=== PATIENT | male | born 1945 | race Caucasian/White ===

== ENCOUNTER 2020-05-22 10:23 | Outpatient (CLI) | payer OTHER, SELFPAY ==
--- NOTE | ~2020-05-22 | CT_ITS ---
EXAMINATION: CT chest wo con DATE: 05/22/2020 10:54 INDICATION: Pulmonary nodule TECHNIQUE: Computed tomography (CT) of the chest was performed without intravenous contrast. Automate d exposure control and iterative reconstruction technique were employed. Exam dose: 163.10 mGy-cm to james exam DLP. COMPARISON: 06/23/2019 CT chest 03/22/[address] lung cancer screening FINDINGS: There is mild bilateral apical scarring. There are moderate emphysematous changes. Stable focal pleural-based scarring in the posterolateral right upper lobe, not significantly changed in appearance since 03/22/2019. No significant change of previously reported 6 mm nodular density at the right upper lobe series 4 im age 20). No new or enlarging pulmonary mass is detected. Interval minimal discoid atelectasis in the anterolateral left lung base, left lower lobe. There is aortic and great vessel and coronary artery calcification. No thoracic aortic aneurysm. Norm al heart size. No pericardial or pleural effusion. No hilar or mediastinal mass lesion or lymphadenopathy. No pulmonary infiltrate or consolidation. Mild compression fracture deformities of T6 and L1. IMPRESSION: Moderate emphysema and mild atelectasis and/or scarring of the lungs; no significant new or enlarging pulmonary mass lesion is evident Reviewed, dictated and finalized at [facility]. Reviewed, dictated and finalized at location B. SUPERVISOR IMPRESSION: Moderate emphysema and mild atelectasis and/or scarring of the david gs; no significant new or enlarging pulmonary mass lesion is evident
== END 2020-05-22 10:24 | disposition home or self-care (01) ==
PROVIDERS: PCP Internal Medicine; Visit Provider Internal Medicine Critical Care Medicine
DX: R91.1 Solitary pulmonary nodule (principal); J43.9 Emphysema, unspecified
CPT/HCPCS: 71250

== ENCOUNTER 2020-12-09 15:09 | Outpatient (CLI) | payer OTHER, SELFPAY ==
--- NOTE | ~2020-12-09 | US_ITS ---
EXAMINATION: US carotid duplex BI DATE: 12/09/2020 15:44 INDICATION: Carotid atherosclerosis. Atherosclerotic coronary artery disease. TECHNIQUE: Grayscale, color Doppler, and pulsed Doppler images of the cervical carotid arteries were obtained. The degree of vessel stenosis is placed in one of the following categories: normal, <50%, 5 0-69%, >=70% but less than near-occlusion, near-occlusion, or total occlusion. Note that percent sten osis relative to normal distal artery lumen diameter is indirectly measured from velocity measurement s as described by Jay, et al. Radiology 2003; [id number]:[id number]. COMPARISON: None. FINDINGS: RIGHT: The right common carotid artery (CCA) peak systolic velocity (PSV) is 69 cm/s. The right internal car otid artery (ICA) PSV is 8 cm/s. The right ICA end-diastolic velocity (EDV) is 21 cm/s. The right ICA /CCA PSV ratio is .0. Grayscale and color Doppler images yield an estimate of <50% diameter reduction from plaque in the ICA. The external carotid artery (ECA) PSV is 77 cm/s. There is antegrade flow in the right vertebral artery. Incidentally noted is a 1.4 x 0.9 x 1.3 cm hypoechoic level 2 right cerv ical lymph node which is at the upper limits of normal in size and more round than typical. LEFT: The left CCA PSV is 77 cm/s. The left ICA PSV is 53 cm/s. The left ICA EDV is 15 cm/s. The left ICA/C CA PSV ratio is 0.7. Grayscale and color Doppler images yield an estimate of <50% diameter reduction from plaque in the ICA. The ECA PSV is 73 cm/s. There is antegrade flow in the left vertebral artery. IMPRESSION: 1. <50% stenosis in the right internal carotid artery. 2. <50% stenosis in the left internal carotid artery. 3. Indeterminate prominent right level 2 cervical lymph node which is at the upper limits of normal i n size and more round than typical. This could be either reactive or metastatic. Depending on clinica l history could consider either conservative clinical and/or ultrasound follow-up versus ultrasound-g uided biopsy. Reviewed, dictated and finalized at location A. IMPRESSION: 1. <50% stenosis in the right internal carotid artery. 2. <50% stenosis in the left internal carotid artery. 3. Indeterminate prominent right level 2 cervical lymph node which is at the up per limits of normal in size and more round than typical. This could be either reactive or metastatic. Depending on clinical history could consider either con servative clinical and/or ultrasound follow-up versus ultrasound-guided biopsy.
== END 2020-12-09 15:10 | disposition home or self-care (01) ==
LOC: ANHIMG 15:12
PROVIDERS: PCP Internal Medicine; Visit Provider Internal Medicine
DX: I25.10 Atherosclerotic heart disease of native coronary artery without angina pectoris (principal); I65.23 Occlusion and stenosis of bilateral carotid arteries
CPT/HCPCS: 93880

== ENCOUNTER 2021-01-16 16:04 | Outpatient (CLI) | payer OTHER, SELFPAY ==
--- NOTE | ~2021-01-16 | US_ITS ---
EXAMINATION: US soft tissue head and neck DATE: 01/16/2021 16:33 INDICATION: Enlarged right cervical lymph node TECHNIQUE: Multiple grayscale and Doppler ultrasound images of the abdomen were obtained. COMPARISON: Ultrasound dated 12/09/2020 FINDINGS: Minimal decrease in size of a previously 1.4 x 0.9 x 1.3 cm, now 1.2 x 0.8 x 1.2 cm hypoechoic right jugular chain lymph node near the level of the carotid bulb. No other enlarged jugular chain lymph no geoffrey on either the left or right. There is minimal atherosclerotic plaque at the bilateral carotid bul bs. IMPRESSION: 1. Slight decrease in size of a now 1.2 x 0.8 x 1.2 cm right jugular chain lymph node which is relati vely reassuring although follow-up interval is relatively short and the differences in measurement ar e relatively small and within range of error. Patient states that he will be having a PET CT within t he next week. Would recommend decision on need for further follow-up imaging or biopsy to be based up on findings on the subsequent PET/CT. Reviewed, dictated and finalized at location A. IMPRESSION: 1. Slight decrease in size of a now 1.2 x 0.8 x 1.2 cm right jugular chain lymp h node which is relatively reassuring although follow-up interval is relatively short and the differences in measurement are relatively small and within range of error. Patient states that he will be having a PET CT within the next week. Would recommend decision on need for further follow-up imaging or biopsy to be based upon findings on the subsequent PET/CT.
== END 2021-01-16 16:05 | disposition home or self-care (01) ==
LOC: ANHIMG 16:08
PROVIDERS: PCP Internal Medicine; Visit Provider Internal Medicine
DX: R59.1 Generalized enlarged lymph nodes (principal)
CPT/HCPCS: 76536

== ENCOUNTER 2021-01-22 11:56 | Outpatient (CLI) | payer OTHER, SELFPAY ==
--- NOTE | ~2021-01-22 | PE_ITS ---
EXAMINATION: PET skull to mid thigh DATE: 01/22/2021 14:09 INDICATION: Other nonspecific abnormal finding of the lung field TECHNIQUE: Blood glucose level was 89 mg/dL. 10.886 mCi of 18-fluorodeoxyglucose (18-FDG) was adminis tered i.v. Low dose computed tomography (CT) images were acquired from the base of the brain to the p roximal thighs for attenuation correction and anatomic localization. Positron emission tomography (PE T) images were acquired in the same distribution beginning 49 minutes after injection. The dose-lengt h product (DLP) was 721.58 mGy-cm. COMPARISON: Outside hospital CT dated 01/12/2021 FINDINGS: Head/neck: No abnormal FDG uptake is identified. FDG uptake in the oropharynx and vocal cords without suspicious CT correlate is likely physiologic. Chest: There is a 2.1 x 1.6 cm spiculated nodule of the right upper lobe which demonstrates abnormal FDG uptake with an SUV max of 4.1. There is a 2.0 x 1.8 cm right axillary lymph node with FDG uptake and an SUV max of 6.5. There is moderate emphysema. No pleural effusion or pneumothorax is identified . There are changes of coronary artery bypass grafting. There is scarring in the right lung apex. Abdomen/pelvis/proximal thighs: Physiologic FDG activity is present in the bowel and urinary tract. N o abnormal FDG uptake is identified. The liver, spleen, pancreas, gallbladder, and right adrenal glan d are normal. There is a 1.5 cm mass of the left adrenal gland without FDG uptake, likely an adenoma. There are pathologically enlarged retroperitoneal lymph nodes with abnormal FDG uptake which measure up to 3.3 x 1.7 cm with an SUV max of 8.1. There are pathologically enlarged bilateral external kelly c chain lymph nodes with abnormal FDG uptake. A normal-sized left internal iliac chain lymph node dem onstrates abnormal FDG uptake. There is no free intraperitoneal gas or evidence of bowel obstruction. There are surgical changes of the aorta. Musculoskeletal: There are changes of median sternotomy with FDG uptake at the sternotomy site. No ab normal FDG uptake is identified. IMPRESSION: 1. Spiculated right upper lobe mass concerning for primary bronchogenic carcinoma. 2. Abdominal and pelvic lymphadenopathy which could reflect metastatic disease or lymphoma. 3. Right axillary lymph node which could also reflect metastatic disease or lymphoma. Reviewed, dictated and finalized at location B. IMPRESSION: 1. Spiculated right upper lobe mass concerning for primary bronchogenic carcino ma. 2. Abdominal and pelvic lymphadenopathy which could reflect metastatic disease or lymphoma. 3. Right axillary lymph node which could also reflect metastatic disease or lym phoma.
[2021-01-22 12:20] LABS: Glucose Point of Care 89 mg/dl (65-105)
== END 2021-01-22 11:57 | disposition home or self-care (01) ==
LOC: ANHIMG 11:58
PROVIDERS: PCP Internal Medicine; Visit Provider Nurse Practitioner Family
DX: R91.8 Other nonspecific abnormal finding of lung field (principal)
CPT/HCPCS: 78815; A9552

== ENCOUNTER 2021-02-12 12:40 | Outpatient (CLI) | payer OTHER, SELFPAY ==
[2021-02-06 10:36] VITALS: BMI 27.8
--- NOTE | ~2021-02-12 | US_ITS ---
EXAMINATION: US biopsy lymph node DATE: 02/12/2021 14:17 INDICATION: Right axillary lymphadenopathy. TECHNIQUE: The procedure including the risks, benefits, and alternatives was discussed with the patie nt. Risks discussed included bleeding and infection. The patient understood the risks and agreed to p roceed. The skin overlying the right axilla was prepped and draped in usual sterile fashion. Anesthe tic was administered with 1% lidocaine subcutaneously. An 18 gauge core biopsy needle was then used to obtain 6 core biopsy specimens under continuous sonographic guidance. The entry site was cleaned a nd dressed. There were no immediate complications. FINDINGS: Ultrasound images demonstrate the needle in a 2.7 x 2.2 x 1.6 cm right axillary lymph node. IMPRESSION: 1. Ultrasound-guided core needle biopsy of a mildly enlarged right axillary lymph node. Reviewed, dictated and finalized at location A. IMPRESSION: 1. Ultrasound-guided core needle biopsy of a mildly enlarged right axillary lym ph node.
== END 2021-02-12 12:41 | disposition home or self-care (01) ==
LOC: ANHSURGERY 12:40
PROVIDERS: PCP Internal Medicine; Visit Provider Nurse Practitioner Family
DX: R59.0 Localized enlarged lymph nodes (principal)
CPT/HCPCS: 38505; 76942; 88305; 88341; 88342

== ENCOUNTER 2021-03-11 14:51 | Outpatient (CLI) | payer OTHER, SELFPAY ==
--- NOTE | ~2021-03-11 | US_ITS ---
US soft tissue chest 03/11/2021 15:09 Indication: Left chest swelling since recent open heart surgery Procedure: High-resolution ultrasound of the left chest Comparison: No prior studies for comparison. Findings: Normal heterogeneous echotexture in the left chest. Images of the right chest perform for c omparison without abnormality. Impression: 1: Normal soft tissue ultrasound of the left chest without discrete mass or fluid collection. Reviewed, dictated and finalized at location A. Impression: 1: Normal soft tissue ultrasound of the left chest without discrete mass or flu id collection.
== END 2021-03-11 14:52 | disposition home or self-care (01) ==
PROVIDERS: PCP Internal Medicine; Visit Provider Internal Medicine
DX: R22.2 Localized swelling, mass and lump, trunk (principal)
CPT/HCPCS: 76604

== ENCOUNTER 2021-04-15 00:42 | Day surgery (SDC) | payer OTHER, SELFPAY ==
[2021-04-14 08:30] VITALS: BMI 28.1
--- NOTE | ~2021-04-15 | XR_ITS ---
EXAMINATION: XR chest port-a-cath/central EXAM DATE: 04/15/2021 13:57 INDICATION: Gabby catheter insertion. TECHNIQUE: Portable AP frontal chest x-ray was obtained. There is no prior study for comparison. FINDINGS: There is a right-sided portacatheter, tip projecting over the inferior aspect of the SVC. M ild tortuosity of the catheter at the 1st rib clavicular junction without narrowing or kinking. Some hyperinflation. No postprocedure pneumothorax. Sternotomy wires are present without findings to sug gest sternal dehiscence. No focal airspace disease or pneumothorax. IMPRESSION: 1. No evidence postprocedure pneumothorax. Reviewed, dictated and finalized at location A.
--- NOTE | ~2021-04-15 | XR_ITS ---
EXAMINATION: XR fl guide central line place DATE: 04/15/2021 13:48 INDICATION: Port catheter insertion TECHNIQUE: 3 fluoroscopic images of the central chest in the single portable AP upright radiograph we re obtained during right subclavian central venous port catheter placement performed by Dr. Najera. Ra diologist was not present for the imaging or procedure. The amount of fluoroscopy time used during th is procedure was 0.2 minutes. COMPARISON: None. FINDINGS: Right subclavian central venous port catheter with distal tip at the caudal superior vena cava. Chron ic linear atelectasis/scarring at the anterior right middle lobe along side a small pericardial fat p ad. No new airspace opacities, pulmonary edema, pleural effusion or pneumothorax. The cardiomediastin al silhouette is normal. Median sternotomy wires and mediastinal surgical clips are seen, likely from prior coronary artery bypass grafting. IMPRESSION: 1. Right subclavian central venous port catheter tip in the caudal superior vena cava. No acute cardi opulmonary disease. Reviewed, dictated and finalized at location A. IMPRESSION: 1. Right subclavian central venous port catheter tip in the caudal superior sukhwinder a cava. No acute cardiopulmonary disease.
--- NOTE | 2021-04-15 10:20 | PM.IMHP ---
H&P: HPI History of Present Illness Date/Time: 04/15/21 10:20 Pt is a 75 y/o M presenting for VAD placement. Pt recently dx'd c lymphoma and needs VAD for chemo access. Pt reports he is to start pt IGLESIA. Chief Complaint: lymphoma Review of Systems Review of Systems: All systems reviewed & are unremarkable except as noted in HPI and below PMFSH Past Medical History Medical History Arthritis Bronchitis Hernia Hypertension Lung nodule Midline low back pain without sciatica Muscle rupture NSTEMI (non-ST elevated myocardial infarction) Surgical History Surgical History H/O flhao-lkxif-fpzmewg bypass Double H/O bilateral cataract extraction H/O inguinal hernia repair History of right inguinal hernia repair Hx of tonsillectomy Family History Family History Father Family history of heart disease in male family member before age 55 Hypertension Mother Family history of heart disease in male family member before age 55 Hypertension Cerebrovascular accident Sibling COPD (chronic obstructive pulmonary disease) Other Family history of cardiovascular disease Social History Social History Social History: The patient lives home alone. His sister is a durable power civil attorney for healthcare. His children do live elsewhere. 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 Pt stated stop smoking 06/22/2019. Smoking packs per day: 1 Smoking cigarettes per day: 20.0 Years smoked: 50 Smoking pack-years: 50.00 Smoking status: Current every day smoker Tobacco type: cigarettes Second hand tobacco smoke exposure: Yes Smoking end date: 06/21/19 Additional smoking assessment comments: He stated that he quit smoking yesterday and he has tried Wellbutrin in the Alcohol intake: former Drinks per week: 15 Substance use: never Substance use type: does not use Living arrangements: alone Gender identity (if verbalized by the patient): Male Spiritual care concerns: No Agree to blood products: Yes Meds Home Medications and Allergies Home Medications Medication Instructions Recorded Confirmed Type metoprolol tartrate 50 mg tablet 50 mg PO Q12H 05/18/19 04/14/21 History alprazolam 0.5 mg tablet 0.5 mg PO TID PRN #90 tablet 12/02/20 04/14/21 Rx aspirin 81 mg tablet,delayed 81 mg PO DAILY 12/02/20 04/14/21 History release albuterol sulfate 2 puff INHALATION QID PRN 02/06/21 04/14/21 History atorvastatin 40 mg PO HS 02/06/21 04/14/21 History budesonide-formoterol [Symbicort] 2 puff INHALATION DAILY 02/06/21 04/14/21 History fluticasone propionate [Flonase] 2 spray INTRANASAL BID 02/06/21 04/14/21 History ipratropium-albuterol 3 ml INHALATION TID 02/06/21 04/14/21 History nifedipine 30 mg PO QAM 02/06/21 04/14/21 History nystatin 100,000 unit/mL oral See Rx Instructions .ROUTE 03/23/21 04/14/21 Rx suspension .COMPLEX #224 ml arginine oxoglurate 500 mg PO DAILY 04/08/21 04/14/21 History [L-Arginine(alpha-ketoglutarat)] guaifenesin [Mucinex] 600 mg PO Q12H PRN 04/08/21 04/14/21 History pyridoxine (vitamin B6) 100 mg PO DAILY 04/08/21 04/14/21 History tramadol 50 mg PO PRN PRN 04/08/21 04/14/21 History vitamin B complex [B Complex] 1 cap PO DAILY 04/08/21 04/14/21 History vitamin E 100 unit PO DAILY 04/08/21 04/14/21 History Allergies Allergy/AdvReac Type Severity Reaction Status Date / Time potassium iodide Allergy Unknown THROAT Verified 04/14/21 10:28 SWELLS Exam Const: General: comfortable, no acute distress and ill appearing Nutritional Appearance: average body habitus Orientation/consciousness: patient oriented x3 Limitations: no limitations HENMT: Head: normal to inspection, normocephalic an
--- NOTE | 2021-04-15 10:23 | WPDHPUPDATE1 ---
History and Physical Update Update Date/Time: 04/15/21 10:23 History and Physical has been reviewed, including an updated exam of the patient. There are NO changes in the patient's condition. Risks, benefits, and alternatives have been discussed and questions answered. Patient agrees to proceed with procedure.
[2021-04-15] MEDS: LACTATED RINGERS 1,000 ML 30 ML IV CONT (11:15)
[2021-04-15] MEDS: KETOROLAC 15 MG/ML VIAL (*BKC) IV PUSH (11:20)
[2021-04-15 11:24] VITALS: BP 129/71; PULSE 67; TEMP 36.4; O2SAT 100
--- NOTE | 2021-04-15 11:25 | WPDANESEPPF ---
Anes - Initial Pre Proc Eval Procedure: Operation Date: 04/15/21 12:00 Proposed Procedures p [id number] Insertion - Sania Najera MD Date/Time: 04/15/21 11:25 Surgeon: Sania Najera MD Pre Op Diagnosis: lymphoma Patient Data Age: 75 Gender: M Height: 1.73 m Weight: 83.95 kg Allergies Allergy/AdvReac Type Severity Reaction Status Date / Time potassium iodide Allergy Unknown THROAT Verified 04/15/21 10:46 SWELLS Home Medications Medication Instructions Recorded Confirmed Type metoprolol tartrate 50 mg tablet 50 mg PO Q12H 05/18/19 04/15/21 History alprazolam 0.5 mg tablet 0.5 mg PO TID PRN #90 tablet 12/02/20 04/15/21 Rx aspirin 81 mg tablet,delayed 81 mg PO DAILY 12/02/20 04/15/21 History release albuterol sulfate 2 puff INHALATION QID PRN 02/06/21 04/15/21 History atorvastatin 40 mg PO HS 02/06/21 04/15/21 History budesonide-formoterol [Symbicort] 2 puff INHALATION DAILY 02/06/21 04/15/21 History fluticasone propionate [Flonase] 2 spray INTRANASAL BID 02/06/21 04/15/21 History ipratropium-albuterol 3 ml INHALATION TID 02/06/21 04/15/21 History nifedipine 30 mg PO QAM 02/06/21 04/15/21 History nystatin 100,000 unit/mL oral See Rx Instructions .ROUTE 03/23/21 04/15/21 Rx suspension .COMPLEX #224 ml arginine oxoglurate 500 mg PO DAILY 04/08/21 04/15/21 History [L-Arginine(alpha-ketoglutarat)] guaifenesin [Mucinex] 600 mg PO Q12H PRN 04/08/21 04/15/21 History pyridoxine (vitamin B6) 100 mg PO DAILY 04/08/21 04/15/21 History tramadol 50 mg PO PRN PRN 04/08/21 04/15/21 History vitamin B complex [B Complex] 1 cap PO DAILY 04/08/21 04/15/21 History vitamin E 100 unit PO DAILY 04/08/21 04/15/21 History Laboratory Tests 04/15/21 10:29 PT Pending INR Pending APTT Pending Patient hx anesthesia problems: post op nausea/vomiting Family hx anesthesia problems: none Results Review: All pre-operative results and documents have been reviewed as part of the pre-operative evaluation. [facility] Past Medical History Medical History Arthritis Bronchitis Hernia Hypertension Lung nodule Midline low back pain without sciatica Muscle rupture NSTEMI (non-ST elevated myocardial infarction) Surgical History Surgical History H/O fqojf-qjnva-ftkeisw bypass Double H/O bilateral cataract extraction H/O inguinal hernia repair History of right inguinal hernia repair Hx of tonsillectomy Family History Family History Father Family history of heart disease in male family member before age 55 Hypertension Mother Family history of heart disease in male family member before age 55 Hypertension Cerebrovascular accident Sibling COPD (chronic obstructive pulmonary disease) Other Family history of cardiovascular disease Social History Social History Social History: The patient lives home alone. His sister is a durable power attorney law clerk for healthcare. His children do live elsewhere. 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 Pt stated stop smoking 06/22/2019. Smoking packs per day: 1 Smoking cigarettes per day: 20.0 Years smoked: 50 Smoking pack-years: 50.00 Smoking status: Current every day smoker Tobacco type: cigarettes Second hand tobacco smoke exposure: Yes Smoking end date: 06/21/19 Additional smoking assessment comments: He stated that he quit smoking yesterday and he has tried Wellbutrin in the Alcohol intake: former Drinks per week: 15 Substance use: never Substance use type: does not use Living arrangements: alone Gender identity (if verbalized by the patient): Male Spiritual care concerns: No Agree to blood products: Yes Anes - Eval Final
[2021-04-15 11:33] LABS: Prothrombin Time 13.2 Seconds (11.1-14.7)
[2021-04-15 11:34] LABS: Partial Thromboplastin Time 36.3 SECONDS (22.3-36.8)
[2021-04-15] MEDS: ceFAZolin 2 GM/D5W 50 ML 2 GM/50 ML BAG IVPB (12:51)
[2021-04-15] MEDS: LIDO 1%/EPINEPHRINE 1:100,000 50 ML VIAL INFILTRATE (13:17)
[2021-04-15] MEDS: HEPARIN SODIUM 5,000 UNITS/ML VIAL 5000 UNITS IRRIGATION (13:19)
[2021-04-15] MEDS: HEPARIN SODIUM, PORCINE 10,000 UNITS/10 ML VIAL 10000 UNITS IV PUSH (13:21)
--- NOTE | 2021-04-15 13:27 | W.PM.PROC2 ---
Procedure Note - Detailed Date of Procedure 04/15/21 Pre-op Diagnosis lymphoma Post-op Diagnosis same Procedure Performed placement of left subclavian venous access device with fluroscopic guidance Surgeon Sania Najera MD Anesthesia MAC and local Indications 75 y/o M c lymphoma necessitating venous access device for chemo access Findings 1st stick L SCV Description of Procedure Patient was brought into the operating room and placed in the supine position. After adequate induction of mac anesthesia, the patient was prepped and draped in normal sterile fashion. Time-out was then done to verify the patient's identity, as well as the procedure being performed. I began by making a small incision in the left chest, I then gained access into the left subclavian vein with an 18 gauge needle. I then placed the guidewire into the vein and confirmed placement via fluoroscopic guidance. I then locally anesthetized the area in the left chest. I then enlarged the incision around the guidewire including making a subcutaneous pocket inferiorly to allow placement of the port itself. I then placed a dilating sheath over the guidewire into the left subclavian vein via sterile Seldinger technique. This was once again done and confirmed via fluoroscopic guidance. I then removed the dilator and the guidewire, now just leaving the sheath in the vein. I then fed the previously flushed catheter into the left subclavian vein under fluoroscopic guidance. At approximately 19 cm, the catheter was noted to be near the atrial caval junction. I then peeled away the sheath, now just leaving the catheter in the vein. I then was able to easily draw and flush from the catheter. The catheter was cut to fit and attached to the port itself. The port was placed into the previously made subcutaneous pocket and sutured in with 0 Ethibond suture. Final fluoroscopic view showed the termination of the catheter at the atrial caval junction with a nice smooth curvature back to the port itself. I was able to gain access to the port with a Hoffman needle and was able to easily draw and flush from the port. I then flushed 4 cc of a final heparin flush into the port. The incision was closed with 3 0 Vicryl suture in the subcutaneous tissue and the skin was closed with 4 O Monocryl subcuticular suture. Dermabond was then placed on wound. The patient tolerated the procedure well and will be sent to the recovery room in stable condition. Implants L SCV VAD Estimated Blood Loss 10 Drains No Packing No Pathology none sent Complications No immediate complications Condition stable Disposition PACU
[2021-04-15 13:33] VITALS: BP 112/63; PULSE 88; RESP 16; O2SAT 96
[2021-04-15 14:00] VITALS: BP 107/78; PULSE 83; RESP 20
[2021-04-15 14:25] VITALS: BP 107/78; PULSE 83; RESP 20
--- NOTE | 2021-04-15 14:32 | SUR.PHASEII ---
1400 - xray results noted.
== END 2021-04-15 14:32 | disposition home or self-care (01) ==
PROVIDERS: PCP Internal Medicine; Visit Provider Surgery
PROC: (CPT 36561; principal; 2021-04-15 12:00)
DX: C82.90 Follicular lymphoma, unspecified, unspecified site (principal); I10 Essential (primary) hypertension; I25.2 Old myocardial infarction; Z79.82 Long term (current) use of aspirin; Z79.51 Long term (current) use of inhaled steroids; Z87.891 Personal history of nicotine dependence; Z79.899 Other long term (current) drug therapy
CPT/HCPCS: 36561; 36415; 77001; 85610; 85730; C1788; J0690; J1644; J1885; J3010; J7030; J7120

== ENCOUNTER 2021-04-19 10:36 | Emergency (ER) | payer OTHER, SELFPAY ==
[2021-04-19] VITALS (8 sets, daily range): BP systolic 92–148; BP diastolic 68–80; PULSE 85–101; RESP 15–30; TEMP 37.6; O2SAT 92–99
--- NOTE | ~2021-04-19 | XR_ITS ---
XR chest 2V 04/19/2021 12:57 Indication: Fevers, chills. Lung cancer. Procedure: AP and lateral chest Comparison: Comparison to multiple prior studies sequentially, with oldest reviewed study dated 09/25. Findings: Status post median sternotomy for CABG. Portacatheter tip mass CC. Heart size normal. No fo shravan air space disease, pulmonary edema, pleural effusion or suspected pneumothorax. The lungs are hyp erinflated which is consistent with, but not diagnostic of chronic obstructive pulmonary disease. Impression: 1: No acute cardiopulmonary disease. Reviewed, dictated and finalized at location A. Impression: 1: No acute cardiopulmonary disease.
[2021-04-19] MEDS: SODIUM CHLORIDE 0.9% IV 1,000 ML 999 ML IV CONT ×2 (13:00→16:24)
[2021-04-19 13:05] LABS: Basophils Absolute Auto 0.1 K/mm3 (0.0-0.1); Basophils Percent Auto 0.4 % (0.2-1.2); Eosinophils Absolute Auto 0.1 K/mm3 (0-0.3); Eosinophils Percent Auto 0.7 % (0-4.4); Hematocrit 42.4 % (42.0-52.0); Hemoglobin 15.2 g/dL (14.0-18.0); Immature Granulocyte Absolute 0.11 K/mm3 (0.00-0.031); Immature Platelet Fraction Pct 4.9 % (0.9-11.2); Lymphocytes Absolute Auto 0.45 K/mm3 (0.9-3.2); Mean Corpuscular HGB Conc 35.8 g/dl (32-36); Mean Corpuscular Hemoglobin 33.6 pg (26-34); Mean Corpuscular Volume 93.6 fl (80-100); Mean Platelet Volume 10.2 fl (7.4-10.4); Monocytes Absolute Auto 2.5 K/mm3 (0.1-0.6); Monocytes Percent Auto 22.4 % (2.6-8.5); Neutrophils Percent Auto 71.5 % (45.5-73.1); Platelet Count Result 150 k/mm3 (150-375); Red Blood Count 4.53 M/mm3 (4.6-6.20); Red Cell Distribution Width 13.2 % (11.5-14.5); White Blood Count 11.2 K/mm3 (4.5-10.0)
[2021-04-19 13:13] LABS: INR 1.1; Prothrombin Time 14.3 Seconds (11.1-14.7)
[2021-04-19 13:14] LABS: Partial Thromboplastin Time 39.6 SECONDS (22.3-36.8)
[2021-04-19 13:19] LABS: Lactic Acid Reflex 1.1 mmol/L (0.7-2.1)
[2021-04-19 13:32] LABS: Alanine Aminotransferase 21 U/L (4-50); Albumin Level 4.5 g/dL (3.5-5.1); Alkaline Phosphatase 109 U/L (38-126); Anion Gap 9 mmol/L (8-16); Aspartate Amino Transferase 27 U/L (17-59); Bilirubin,Total 1.3 mg/dL (0.2-1.3); Blood Urea Nitrogen 10 mg/dL (9-20); CRP 15.8 mg/dL (<1.0); Calcium 9.2 mg/dL (8.4-10.2); Carbon Dioxide 21 mmol/L (22-30); Chloride 97 mmol/L (98-107); Estimated CRCL calculation 75 ml/min; Estimated Glomerular Filt Rate > 60; Glucose 108 mg/dL (65-110); Potassium 4.1 mmol/L (3.4-5.0); Sodium 127 mmol/L (137-145)
--- NOTE | 2021-04-19 13:50 | ED.FEVER ---
HPI - Fever General Chief Complaint: Fever Stated Complaint: fever/chills post op Time Seen by Provider: 04/19/21 12:35 Source: patient History of Present Illness HPI Narrative: Patient presents with concern for infection. Patient already had a port placed couple days ago by Dr. Broussard to doing well however has had increasing pain to his port sites and reports fevers of 102 at home. His current there is an infection around his sites he came to the ER for evaluation. Reports he feels weak and fatigued reports pains around his port site. Pain is constant, achy, worse with palpation of the area no radiation. Denies nausea vomiting or diarrhea denies abdominal pain denies cough or congestion denies urinary symptoms Related Data Home Medications Medication Instructions Recorded Confirmed metoprolol tartrate 50 mg tablet 50 mg PO Q12H 05/18/19 04/15/21 aspirin 81 mg tablet,delayed 81 mg PO DAILY 12/02/20 04/15/21 release albuterol sulfate 2 puff INHALATION QID PRN 02/06/21 04/15/21 atorvastatin 40 mg PO HS 02/06/21 04/15/21 budesonide-formoterol [Symbicort] 2 puff INHALATION DAILY 02/06/21 04/15/21 fluticasone propionate 2 spray INTRANASAL BID 02/06/21 04/15/21 ipratropium-albuterol 3 ml INHALATION TID 02/06/21 04/15/21 nifedipine 30 mg PO QAM 02/06/21 04/15/21 L-Arginine(alpha-ketoglutarat) 500 mg PO DAILY 04/08/21 04/15/21 guaifenesin [Mucinex] 600 mg PO Q12H PRN 04/08/21 04/15/21 pyridoxine (vitamin B6) 100 mg PO DAILY 04/08/21 04/15/21 tramadol 50 mg PO PRN PRN 04/08/21 04/15/21 vitamin B complex 1 cap PO DAILY 04/08/21 04/15/21 vitamin E 100 unit PO DAILY 04/08/21 04/15/21 Allergies Allergy/AdvReac Type Severity Reaction Status Date / Time potassium iodide Allergy Unknown THROAT Verified 04/15/21 10:46 DENIZ Review of Systems Review of Systems: CONSTITUTIONAL: Reports fevers EYES: Denies visual changes, redness, or discharge. ENT: Denies rhinorrhea, congestion, sore throat, or otalgia. CARDIOVASCULAR: Denies palpitations, or edema. RESPIRATORY: Denies cough or dyspnea. GASTROINTESTINAL: Denies abdominal pain, nausea, vomiting, or diarrhea. GENITOURINARY: Denies dysuria or hematuria. SKIN: Denies rash or itching. MUSCULOSKELETAL: Denies back pain, joint pain, or myalgia. NEUROLOGIC: Denies headache, numbness, dizziness, or weakness. PSYCHIATRIC: Denies anxiety or depression. All systems reviewed & are unremarkable except as noted in HPI and below PMFSH Past Medical History Medical History Arthritis Bronchitis Hernia Hypertension Lung nodule Midline low back pain without sciatica Muscle rupture NSTEMI (non-ST elevated myocardial infarction) Surgical History Surgical History H/O niwdd-skuan-beqygrd bypass Double H/O bilateral cataract extraction H/O inguinal hernia repair History of right inguinal hernia repair Hx of tonsillectomy Family History Family History Father Family history of heart disease in male family member before age 55 Hypertension Mother Family history of heart disease in male family member before age 55 Hypertension Cerebrovascular accident Sibling COPD (chronic obstructive pulmonary disease) Other Family history of cardiovascular disease Social History Social History Social History: The patient lives home alone. His sister is a durable power commercial attorney for healthcare. His children do live elsewhere. 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 Pt stated stop smoking 06/22/2019. Smoking packs per day: 1 Smoking cigarettes per day: 20.0 Years smoked: 50 Smoking pack-years: 50.00 Smoking status: Current every day smoker Tobacco type: cigarettes Second hand tobacco smoke exposure
[2021-04-19 15:11] LABS: Add Urine Microscopic? YES; Appearance Urine Clear (Clear); Bilirubin Urine Negative (Negative); Blood Urine 1+ (Negative); Color Urine Yellow (Yellow); Glucose Urine UA Negative (Negative); Ketones Urine Trace mg/dL (Negative); Leukocyte Esterase Ur Negative LEU/UL (Negative); Nitrate Urine Negative (Negative); Protein Urine Negative (Negative); Specific Grav Ur 1.008 (1.001-1.035); WBC Urine 0-3 /hpf
== END 2021-04-19 17:00 | disposition home or self-care (01) ==
PROVIDERS: Emergency Provider Emergency Medicine; PCP Internal Medicine
DX: R07.9 Chest pain, unspecified (principal); R50.9 Fever, unspecified; I10 Essential (primary) hypertension; I25.2 Old myocardial infarction; F17.210 Nicotine dependence, cigarettes, uncomplicated; Z79.82 Long term (current) use of aspirin
CPT/HCPCS: 36415; 71046; 80053; 81001; 83605; 85025; 85055; 85610; 85730; 86140; 87040; 87077; 87186; 96361; 96365; 96366; 96375; 99284; J0131; J3370; J7030

== ENCOUNTER 2021-06-11 10:26 | Emergency (ER) | payer OTHER, SELFPAY ==
--- NOTE | ~2021-06-11 | CT_ITS ---
EXAMINATION: CTA chest PE protocol DATE: 06/11/2021 12:31 INDICATION: Palpitations. Right lung upper lobe cancer receiving radiation therapy. Not proven by bio psy. TECHNIQUE: Computed tomography angiography (CTA) of the chest was performed with 100 mL Omnipaque-350 intravenous contrast timed to evaluate the pulmonary arteries. Coronal maximum intensity projection 3D-reconstructions were created by the technologist. Automated exposure control and iterative reconst ruction technique were employed. The dose-length product was 409.91 mGy-cm. COMPARISON: Chest CT 05/22/2020, 01/12/2021 FINDINGS: There is mild scarring at the lung apices. There is moderate emphysema. In the right upper lobe, there is a 1.3 cm nodule with bandlike morphology, decreased from 2.2 cm on 01/12/2021. The irre gular morphology of the nodule may cause variability in measurement. There is mild atelectasis bilate rally. There is a new 5 mm nodule in right lower lobe. There is a worsened 11 mm nodule in left lower lobe in the costophrenic angle. No pleural effusion. There is a right subclavian port with tip at martinez perior cavoatrial junction. The heart size is normal. There are coronary artery calcifications. There are changes of coronary bypass grafting. There is no pulmonary embolus. There is mild thoracic spond ylosis. There is mild chronic anterior wedging and loss of T3, T6, and L1 vertebral bodies. IMPRESSION: 1. No pulmonary embolus. Sensitivity is mildly decreased attenuation artifact. 2. Right upper lobe nodule with interval improvement status post radiation therapy. This finding may be primary bronchogenic carcinoma, but is not biopsy-proven. 3. Worsened pulmonary nodules, which may be infection or malignancy. Consider noncontrast low-dose est CT in 3 months. 4. Moderate emphysema. Reviewed, dictated and finalized at location A. US SECURITY DIRECTOR IMPRESSION: 1. No pulmonary embolus. Sensitivity is mildly decreased attenuation artifact. 2. Right upper lobe nodule with interval improvement status post radiation ther apy. This finding may be primary bronchogenic carcinoma, but is not biopsy-prov en. 3. Worsened pulmonary nodules, which may be infection or malignancy. Consider n oncontrast low-dose chest CT in 3 months. 4. Moderate emphysema.
--- NOTE | ~2021-06-11 | XR_ITS ---
EXAMINATION: XR chest 2V DATE: 06/11/2021 11:55 INDICATION: Non-Hodgkin's lymphoma and right lung cancer presenting with palpitations. TECHNIQUE: PA and lateral views of the chest were obtained. COMPARISON: Chest radiograph dated 04/19/[address] dated 05/22/2020 FINDINGS: Right subclavian central venous port catheter with distal tip in the midsuperior vena cava. Mild hype rexpansion lungs. No focal airspace opacities, pulmonary edema, pleural effusion or pneumothorax. The cardiomediastinal silhouette is normal. Median sternotomy wires and mediastinal surgical clips are s een, likely from prior coronary artery bypass grafting. IMPRESSION: 1. Hyperexpansion of lungs consistent with CT which is better appreciated on prior CT. No acute cardi opulmonary disease. Reviewed, dictated and finalized at location B. BLOWER IMPRESSION: 1. Hyperexpansion of lungs consistent with CT which is better appreciated on pr ior CT. No acute cardiopulmonary disease.
[2021-06-11 10:29] VITALS: BP 110/69; PULSE 99; RESP 16; TEMP 36.7; O2SAT 100
[2021-06-11 11:36] VITALS: BP 151/82; PULSE 97; PULSE 99; RESP 17; RESP 20; O2SAT 99
--- NOTE | 2021-06-11 11:39 | ECG_ITS ---
Measurements Intervals [place] Rate: 96 P: 64 WI: 163 QRS: 40 QRSD: 67 T: 71 QT: 327 QTc: 415 Interpretive Statements SINUS RHYTHM RSR' IN V1 OR V2, PROBABLY NORMAL VARIANT BASELINE ARTIFACT- II, III, V4-V6 BORDERLINE ECG Electronically Signed On 06-11-2021 16:42:15 METAL LOADER by Tylor Angel D.O.
[2021-06-11 11:57] LABS: Basophils Absolute Auto 0.1 K/mm3 (0.0-0.1); Basophils Percent Auto 0.7 % (0.2-1.2); Eosinophils Absolute Auto 0.5 K/mm3 (0-0.3); Eosinophils Percent Auto 5.1 % (0-4.4); Hematocrit 39.2 % (42.0-52.0); Hemoglobin 13.7 g/dL (14.0-18.0); Immature Granulocyte Absolute 0.09 K/mm3 (0.00-0.031); Immature Granulocyte Percent A 0.9 % (0-0.5); Lymphocytes Absolute Auto 0.58 K/mm3 (0.9-3.2); Lymphocytes Percent Auto 5.9 % (18.3-44.2); Mean Corpuscular HGB Conc 34.9 g/dl (32-36); Mean Corpuscular Hemoglobin 33.3 pg (26-34); Mean Corpuscular Volume 95.4 fl (80-100); Mean Platelet Volume 11.4 fl (7.4-10.4); Monocytes Absolute Auto 2.2 K/mm3 (0.1-0.6); Monocytes Percent Auto 22.8 % (2.6-8.5); Neutrophils Absolute Auto 6.4 K/mm3 (1.3-6.7); Neutrophils Percent Auto 64.6 % (45.5-73.1); Platelet Count Result 143 k/mm3 (150-375); Red Blood Count 4.11 M/mm3 (4.6-6.20); Red Cell Distribution Width 13.9 % (11.5-14.5); White Blood Count 9.8 K/mm3 (4.5-10.0)
[2021-06-11 12:05] LABS: Alanine Aminotransferase 50 U/L (4-50); Albumin Level 3.4 g/dL (3.5-5.1); Alkaline Phosphatase 107 U/L (38-126); Anion Gap 9 mmol/L (8-16); Aspartate Amino Transferase 39 U/L (17-59); Bilirubin,Total 0.6 mg/dL (0.2-1.3); Blood Urea Nitrogen 16 mg/dL (9-20); Calcium 8.5 mg/dL (8.4-10.2); Carbon Dioxide 23 mmol/L (22-30); Chloride 102 mmol/L (98-107); Estimated CRCL calculation 59 ml/min; Estimated Glomerular Filt Rate > 60; Glucose 150 mg/dL (65-110); Lipase 48 U/L (23-300); Potassium 3.9 mmol/L (3.4-5.0); Prothrombin Time 12.9 Seconds (11.1-14.7); Sodium 134 mmol/L (137-145)
[2021-06-11 12:06] LABS: Partial Thromboplastin Time 37.5 SECONDS (22.3-36.8)
--- NOTE | 2021-06-11 12:16 | ED.ARRPALP ---
HPI - Arrhythmia/Palpitations General Chief Complaint: Arrhythmia/Palpitations Stated Complaint: HTN/Palpitations. Time Seen by Provider: 06/11/21 11:40 Source: patient History of Present Illness HPI narrative: Patient presents with palpitations. Reports has had intermittent palpitations for the past 2 weeks without clear etiology. Reports the symptoms happen again last night and his heart rate is in the 120s he was concerned so he came to the ER for evaluation. Reports he was scheduled for a court recording monitor to be placed at [place] with his plastic die maker apprentice however he was scared so he came to the ER instead. On arrival to the ER he reports he feels normal denies any palpitations, chest pain, shortness of breath, lightheadedness. He has been unable to identify any thing clear that triggers these events. Does report a history of malignancy and is on chemo and radiation therapy. Related Data Home Medications Medication Instructions Recorded Confirmed metoprolol tartrate 50 mg tablet 25 mg PO Q12H 05/18/19 05/27/21 albuterol sulfate 2 puff INHALATION QID PRN 02/06/21 05/27/21 atorvastatin 40 mg PO HS 02/06/21 05/27/21 budesonide-formoterol [Symbicort] 2 puff INHALATION DAILY 02/06/21 05/27/21 fluticasone propionate 2 spray INTRANASAL BID 02/06/21 05/27/21 ipratropium-albuterol 3 ml INHALATION TID 02/06/21 05/27/21 L-Arginine(alpha-ketoglutarat) 500 mg PO DAILY 04/08/21 05/27/21 guaifenesin [Mucinex] 600 mg PO Q12H PRN 04/08/21 05/27/21 pyridoxine (vitamin B6) 100 mg PO DAILY 04/08/21 05/27/21 tramadol 50 mg PO PRN PRN 04/08/21 05/27/21 vitamin B complex 1 cap PO DAILY 04/08/21 05/27/21 vitamin E 100 unit PO DAILY 04/08/21 05/27/21 nifedipine 60 mg PO DAILY 05/26/21 05/27/21 Allergies Allergy/AdvReac Type Severity Reaction Status Date / Time potassium iodide Allergy Unknown THROAT Verified 06/11/21 11:40 DENIZ Review of Systems Review of Systems: CONSTITUTIONAL: Denies fever, chills, or sweats. EYES: Denies visual changes, redness, or discharge. ENT: Denies rhinorrhea, congestion, sore throat, or otalgia. CARDIOVASCULAR: Denies chest pain, or edema. RESPIRATORY: Denies cough or dyspnea. GASTROINTESTINAL: Denies abdominal pain, nausea, vomiting, or diarrhea. GENITOURINARY: Denies dysuria or hematuria. SKIN: Denies rash or itching. MUSCULOSKELETAL: Denies back pain, joint pain, or myalgia. NEUROLOGIC: Denies headache, numbness, dizziness, or weakness. PSYCHIATRIC: Denies anxiety or depression. All systems reviewed & are unremarkable except as noted in HPI and below PMFSH Past Medical History Medical History Arthritis Bronchitis Hernia Hypertension Lung nodule Midline low back pain without sciatica Muscle rupture NSTEMI (non-ST elevated myocardial infarction) Surgical History Surgical History H/O ccjoo-jevwc-khsumco bypass Double H/O bilateral cataract extraction H/O inguinal hernia repair History of right inguinal hernia repair Hx of tonsillectomy Family History Family History Father Family history of heart disease in male family member before age 55 Hypertension Mother Family history of heart disease in male family member before age 55 Hypertension Cerebrovascular accident Sibling COPD (chronic obstructive pulmonary disease) Other Family history of cardiovascular disease Social History Social History Social History: The patient lives home alone. His sister is a durable power district attorney for healthcare. His children do live elsewhere. 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 Pt stated stop smoking 06/22/2019. Smoking packs per day: 1 Smoking cigarettes per day: 20.0 Years smoked: 50 Smoking pack-years: 50.
[2021-06-11 12:17] LABS: Troponin I < 0.012 ng/mL (0.000-0.034)
[2021-06-11 13:00] VITALS: BP 120/72; PULSE 87; RESP 16; O2SAT 98
[2021-06-11 14:00] VITALS: BP 124/70; PULSE 90; RESP 16; O2SAT 98
== END 2021-06-11 14:00 | disposition home or self-care (01) ==
PROVIDERS: Emergency Medicine; Emergency Provider Emergency Medicine; PCP Internal Medicine
DX: R00.2 Palpitations (principal); I10 Essential (primary) hypertension; I25.10 Atherosclerotic heart disease of native coronary artery without angina pectoris; E78.2 Mixed hyperlipidemia; I25.2 Old myocardial infarction; F17.210 Nicotine dependence, cigarettes, uncomplicated; Z95.1 Presence of aortocoronary bypass graft
CPT/HCPCS: 36415; 71046; 71275; 80053; 83690; 84484; 85025; 85610; 85730; 93005; 99284; Q9967

== ENCOUNTER 2021-06-24 17:02 | Emergency (ER) | payer OTHER, SELFPAY ==
--- NOTE | 2021-06-24 17:20 | PC.NURSE ---
pt amb to intake , pt states he was sent here by his drRossi to be admitted, and have antibiotics, i have a blood infection , during intake, pt stated his dr called and set things up and he would not have to wait longer than 20min. I asked the nursing maid housekeeper if she was called for a direct admit, she stated no call & not accepting direct admits at this time. spoke with ED charge, pt states the pt did call. pt does have positive blood cult. his md was told by ed md, there would be a wait in the ed & the md was ok with this. explained to this pt, if he was instructed by his md to come in for blood infection , it would be in his best interest to wait to be seen/triaged. pt stated i am leaving, i was supposed to be brought right in, I ll come back in the morning. I told him due to the high acuity and census of the dept, i could not guarantee him a no wait time even in the morning. pt amb out of ed with nl steady gait, no distress noted.
== END 2021-06-25 04:32 | disposition left against medical advice (07) ==
PROVIDERS: PCP Internal Medicine
DX: Z53.21 Procedure and treatment not carried out due to patient leaving prior to being seen by health care provider (principal)
CPT/HCPCS: 99199

== ENCOUNTER 2021-08-03 12:41 | Inpatient (IN) | payer OTHER, MEDICAID, SELFPAY ==
--- NOTE | ~2021-08-03 | XR_ITS ---
EXAMINATION: XR chest 1V portable INDICATION: Port-A-Cath infection, history of hypertension TECHNIQUE: Portable AP chest at 1556 hours COMPARISON: 06/11/2021 FINDINGS: A right subclavian Port-A-Cath ends with its tip in the midsuperior vena cava. There are pa tchy bilateral airspace opacities. No pleural effusion or pneumothorax is identified. Median sternoto my wires are consistent with prior cardiac surgery. IMPRESSION: 1. Patchy bilateral airspace opacities, consistent with atelectasis versus pneumonia. Reviewed, dictated and finalized at location B. ER TRAPPER IMPRESSION: 1. Patchy bilateral airspace opacities, consistent with atelectasis versus pneu monia.
[2021-08-03 13:01] VITALS: BP 145/91; PULSE 116; RESP 16; TEMP 36.8; O2SAT 96
--- NOTE | 2021-08-03 13:34 | ED.RECABL ---
HPI - Recheck/Abnormal Lab/Rx General Chief Complaint: Recheck/Abnormal Lab/Rx Stated Complaint: positive blood cultures Time Seen by Provider: 08/03/21 13:34 Source: patient and EMS Mode of arrival: EMS Limitations: no limitations History of Present Illness HPI narrative: Patient is a 75-year-old male with a history of coronary artery disease, CABG, COPD, paroxysmal SVT, atrial fibrillation, right small cell lung cancer, follicular lymphoma, presenting to the emergency department for evaluation of positive blood cultures. Patient has a history of positive blood cultures in the past with recent hospitalization at [facility]. He has been receiving chemotherapy through a right chest port. Patient reports fever, chills, febrile to 102 Fahrenheit at home. He reports rigors at times. He reports decreased oral intake secondary to generalized malaise. He denies any cough, shortness of breath or chest pain. No rashes. Patient states that he was informed to come here by his checkering machine operator/oncologist. Primary chart review, patient had labs, blood cultures drawn on outpatient hematology/oncology visit. 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 Patient was recently placed on Levaquin by his checkering machine operator and oncologist 3 days ago. He has been compliant with this medication. He denies any dizziness or lightheadedness. He is undergoing chemotherapy. Related Data Home Medications Medication Instructions Recorded Confirmed metoprolol tartrate 50 mg tablet 25 mg PO Q12H 05/18/19 07/23/21 atorvastatin 40 mg PO HS 02/06/21 07/23/21 budesonide-formoterol [Symbicort] 2 puff INHALATION DAILY 02/06/21 07/23/21 ipratropium-albuterol 3 ml INHALATION TID 02/06/21 07/23/21 L-Arginine(alpha-ketoglutarat) 500 mg PO DAILY 04/08/21 07/23/21 guaifenesin [Mucinex] 400 mg PO Q12H PRN 04/08/21 07/23/21 pyridoxine (vitamin B6) 100 mg PO DAILY 04/08/21 07/22/21 tramadol 50 mg PO PRN PRN 04/08/21 07/23/21 vitamin E 100 unit PO DAILY 04/08/21 07/22/21 nifedipine 60 mg PO DAILY 05/26/21 07/22/21 aspirin 81 mg tablet,delayed 81 mg PO DAILY 07/22/21 07/23/21 release minocycline 100 mg capsule 100 mg PO cap 07/22/21 07/22/21 cholecalciferol (vitamin D3) 25 mcg PO DAILY 07/23/21 07/23/21 [Vitamin D3] magnesium 500 mg PO DAILY 07/23/21 07/23/21 selenium 200 mcg PO DAILY 07/23/21 07/23/21 zinc 50 mg PO DAILY 07/23/21 07/23/21 levofloxacin 500 mg PO 08/03/21 Allergies Allergy/AdvReac Type Severity Reaction Status Date / Time potassium iodide Allergy Unknown THROAT Verified 08/03/21 13:36 SWELLS Review of Systems Review of Systems: CONSTITUTIONAL: Reports fever and chills EYES: Denies visual changes, redness, or discharge. ENT: Denies rhinorrhea, congestion, sore throat, or otalgia. CARDIOVASCULAR: Denies chest pain, palpitations, or edema. RESPIRATORY: Denies cough or dyspnea. GASTROINTESTINAL: Denies abdominal pain, reports mild nausea without vomiting GENITOURINARY: Denies dysuria or hematuria. SKIN: Denies rash or itching. MUSCULOSKELETAL: Denies back pain, joint pain, reports myalgias NEUROLOGIC: Denies headache, numbness, or weakness. [facility] Past Medical History Medical History (Updated 08/03/21 @ 15:43 by Zahraa Velez MD) Acute exacerbation of chronic obstructive pulmonary disease Anxiety Arthritis Axillary adenopathy Bronchitis Chronic GERD Chronic low back pain with sciatica Chronic right shoulder pain Constipation COPD exacerbation Coronary artery disease involving [place] coronary artery of [place] heart Depression Dysphagia Essential hypertension Follicular lymphoma Hernia Hypercholesterolemia Hypertension Hypertensive retinopathy Lung nodule Malignant neoplasm of upper lobe, right bronchus or lung Midline low back pain without sciatica Muscle rupture NSTEMI (non-ST elevated myocardial infarction) Peripheral vascular disease, unspecified Primary osteoarthritis
[2021-08-03] MEDS: SODIUM CHLORIDE 0.9% IV 1,000 ML 999 ML IV CONT ×2 (14:40→14:41)
[2021-08-03] MEDS: ONDANSETRON INJ 4 MG/2 ML VIAL IV PUSH (14:40)
[2021-08-03 15:07] LABS: Add Urine Microscopic? NO; Appearance Urine Clear (Clear); Bilirubin Urine Negative (Negative); Blood Urine Negative (Negative); Color Urine Yellow (Yellow); Glucose Urine UA Negative (Negative); Ketones Urine Negative (Negative); Leukocyte Esterase Ur Negative LEU/UL (Negative); Nitrate Urine Negative (Negative); Protein Urine Negative (Negative); Specific Grav Ur 1.009 (1.001-1.035); Urobilinogen Urine Negative mg/dL (<2.0)
[2021-08-03 15:20] LABS: Lactic Acid Reflex 1.5 mmol/L (0.7-2.1)
--- NOTE | 2021-08-03 15:20 | PC.NURSE ---
Pt's green top for CMP, Trop I hemolyzed per lab. Pt refuses blood draw at this time
--- NOTE | 2021-08-03 15:35 | PC.NURSE ---
Lab rejected green top
--- NOTE | 2021-08-03 15:37 | PC.NURSE ---
Pt refusing blood draw by mechanical sound technician
[2021-08-03 15:39] LABS: SARS-CoV-2 RNA PCR Positive
--- NOTE | 2021-08-03 15:45 | PC.NURSE ---
Green top obtained and sent to lab. Lab calls and states purple top is hemolyzed
--- NOTE | 2021-08-03 15:56 | PC.NURSE ---
pt refusing blood draw at this time
[2021-08-03 15:57] LABS: Alanine Aminotransferase 33 U/L (4-50); Albumin Level 3.4 g/dL (3.5-5.1); Alkaline Phosphatase 87 U/L (38-126); Anion Gap 10 mmol/L (8-16); Aspartate Amino Transferase 44 U/L (17-59); Bilirubin,Total 0.4 mg/dL (0.2-1.3); Blood Urea Nitrogen 16 mg/dL (9-20); Calcium 8.2 mg/dL (8.4-10.2); Carbon Dioxide 18 mmol/L (22-30); Chloride 101 mmol/L (98-107); Estimated CRCL calculation 54 ml/min; Estimated Glomerular Filt Rate > 60; Glucose 91 mg/dL (65-110); Sodium 129 mmol/L (137-145)
[2021-08-03] MEDS: ACETAMINOPHEN 325 MG TABLET 650 MG PO (15:58)
[2021-08-03 16:09] LABS: Troponin I < 0.012 ng/mL (0.000-0.034)
[2021-08-03 16:11] VITALS: BP 151/74; PULSE 95; RESP 18; TEMP 38.3; O2SAT 95
[2021-08-03 16:59] LABS: Basophils Percent Auto 0.3 % (0.2-1.2); Eosinophils Percent Auto 0.6 % (0-4.4); Hematocrit 33.2 % (42.0-52.0); Hemoglobin 11.5 g/dL (14.0-18.0); Immature Granulocyte Absolute 0.03 K/mm3 (0.00-0.031); Immature Granulocyte Percent A 0.9 % (0-0.5); Immature Platelet Fraction Pct 8.2 % (0.9-11.2); Lymphocytes Absolute Auto 0.08 K/mm3 (0.9-3.2); Lymphocytes Percent Auto 2.3 % (18.3-44.2); Mean Corpuscular HGB Conc 34.6 g/dl (32-36); Mean Corpuscular Hemoglobin 33.4 pg (26-34); Mean Corpuscular Volume 96.5 fl (80-100); Mean Platelet Volume 11.3 fl (7.4-10.4); Monocytes Absolute Auto 0.9 K/mm3 (0.1-0.6); Monocytes Percent Auto 26.6 % (2.6-8.5); Neutrophils Absolute Auto 2.4 K/mm3 (1.3-6.7); Neutrophils Percent Auto 69.3 % (45.5-73.1); Platelet Count Result 105 k/mm3 (150-375); Red Blood Count 3.44 M/mm3 (4.6-6.20); Red Cell Distribution Width 15.4 % (11.5-14.5); White Blood Count 3.4 K/mm3 (4.5-10.0)
[2021-08-03 19:05] VITALS: BP 126/80; PULSE 115; RESP 16; O2SAT 89
[2021-08-03 19:06] VITALS: O2SAT 97
[2021-08-03 20:37] VITALS: O2SAT 94
--- NOTE | 2021-08-03 20:41 | ADMGEN ---
This patient, Kip Olsen, was admitted to [facility] Surg Room 327-01. Patient/family oriented to hospital policies and general routines including ID bracelet, bed and alarms, visiting hours, pain management, procedures, bathroom and other care routines, personal items, smoking policy, room service/diet, and visiting hours. Information on how to activate the Rapid Response Team has been discussed. Patient/Family are encouraged to report perceived risks to care and to ask questions if they do not understand what they are told or what they should do.
[2021-08-03 20:59] VITALS: BP 128/70; PULSE 114; RESP 18; TEMP 36.9; O2SAT 100; BMI 25.0
--- NOTE | 2021-08-03 23:00 | PM.IMHP ---
H&P: HPI History of Present Illness Date/Time: 08/03/21 23:00 this is a 75-year-old male patient to has follicular lymphoma. The patient stated that 12 April 2021 he had a Port-A-Cath placed to his right upper chest in with then the 1st couple weeks patient was already in the emergency with an infection to the right Port-A-Cath. The patient has been dealing with an infection since then. The patient stated that he has not even been able to get chemotherapy because of the infection. He has a history of having COPD and paroxysmal SVT as well as atrial fibrillation right small cell lung cancer. Patient came to the emergency room to be evaluated for positive blood cultures. The patient recently was hospitalized at [facility]. The patient reports that he has been having chills and fever up to 102 at home. He states that he has rigors at night. He also has malaise. No cough. The patient had blood cultures drawn on an outpatient Hematology-Oncology visit. Patient's blood cultures were positive for stenotrophomonas maltophilia which have been present in blood cx since 04/2021. the patient stated that he has been taking Levaquin. He has been taking this for the last 3 days. Today the patient was found to be positive for COVID-19. He is currently on 4 L per nasal cannula and had not been on any oxygen at home. Chest x-ray was read as patchy bilateral airspace opacities consistent with atelectasis versus pneumonia. I spoke with my a collaborative the nuclear instructor who recommended that the patient be started on treatment for COVID-19. Oncology and surgery have been consulted. The patient was given IV fluids, Zofran and Levaquin in the emergency room. The patient is being admitted to inpatient services on the date of service of 08/03/2019 to Chief Complaint: Positive blood culture Review of Systems Review of Systems: All systems reviewed & are unremarkable except as noted in HPI and below Constitutional: Constitutional: Reports as per HPI and Reports no additional constitutional complaints Eyes: Eyes: Reports as per HPI and Reports no additional eye complaints ENT: Reports system reviewed and no additional complaints, except as documented and Reports Normal hearing present Cardiovascular: Cardiovascular: Reports no additional cardiovascular complaints Respiratory: Respiratory: Reports no additional respiratory complaints and Reports no additional respiratory complaints Gastrointestinal: Gastrointestinal: Reports as per HPI and Reports no additional gastrointestinal complaints Musculoskeletal: Musculoskeletal: Reports no additional musculoskeletal complaints Integumentary/Breasts: Skin/Breast: Reports system reviewed and no additional complaints, except as docu and Reports as per HPI Neurologic: Reports system reviewed and no additional complaints, except as documented, Reports as per HPI and Reports Normal hearing present Psychiatric: Psychiatric: Reports no additional psychiatric complaints and Reports as per HPI Endocrine: Endocrine: Reports no additional endocrine complaints Hematologic/Lymphatic: Hematologic/Lymphatic: Reports no additional hematologic/lymphatic complaints Allergic/Immunologic: Allergic/Immunologic: Reports no additional allergic/immunologic complaints [facility] Past Medical History Medical History Acute exacerbation of chronic obstructive pulmonary disease Anxiety Arthritis Axillary adenopathy Bronchitis Chronic GERD Chronic low back pain with sciatica Chronic right shoulder pain Constipation COPD exacerbation Coronary artery disease involving [place] coronary artery of [place] heart Depression Dysphagia Essential hypertension Follicular lymphoma Hernia Hypercholesterolemia Hypertension Hypertensive retinopathy Lung nodule Malignant neoplasm of upper lobe, right bronchus or lung Midline low back pain without sciatica Muscle rupture NSTEMI (non-ST
[2021-08-03] MEDS: REMDESIVIR 200 MG/NS 250 ML 200 MG/250 ML BAG 250 MG IVPB (23:47)
[2021-08-03 23:48] LABS: Alanine Aminotransferase 31 U/L (4-50); Estimated CRCL calculation 54 ml/min; Estimated Glomerular Filt Rate > 60
[2021-08-04] VITALS (13 sets, daily range): BP systolic 121–153; BP diastolic 64–97; PULSE 72–111; RESP 15–22; TEMP 35.9–37.1; O2SAT 93–98; BMI 25.0
[2021-08-04 06:54] LABS: Hematocrit 36.2 % (42.0-52.0); Hemoglobin 12.3 g/dL (14.0-18.0); Immature Granulocyte Absolute 0.02 K/mm3 (0.00-0.031); Immature Granulocyte Percent A 1.2 % (0-0.5); Immature Platelet Fraction Pct 8.2 % (0.9-11.2); Lymphocytes Absolute Auto 0.07 K/mm3 (0.9-3.2); Lymphocytes Percent Auto 4.3 % (18.3-44.2); Mean Corpuscular Hemoglobin 33.7 pg (26-34); Mean Corpuscular Volume 99.2 fl (80-100); Mean Platelet Volume 11.1 fl (7.4-10.4); Monocytes Absolute Auto 0.3 K/mm3 (0.1-0.6); Monocytes Percent Auto 18.9 % (2.6-8.5); Neutrophils Absolute Auto 1.2 K/mm3 (1.3-6.7); Neutrophils Percent Auto 75.6 % (45.5-73.1); Platelet Count Result 103 k/mm3 (150-375); Red Blood Count 3.65 M/mm3 (4.6-6.20); Red Cell Distribution Width 15.7 % (11.5-14.5)
[2021-08-04 07:06] LABS: Alanine Aminotransferase 36 U/L (4-50); Albumin Level 3.4 g/dL (3.5-5.1); Alkaline Phosphatase 86 U/L (38-126); Anion Gap 6 mmol/L (8-16); Aspartate Amino Transferase 46 U/L (17-59); Bilirubin,Total 0.3 mg/dL (0.2-1.3); Blood Urea Nitrogen 12 mg/dL (9-20); Calcium 8.5 mg/dL (8.4-10.2); Carbon Dioxide 21 mmol/L (22-30); Chloride 108 mmol/L (98-107); Estimated CRCL calculation 59 ml/min; Estimated Glomerular Filt Rate > 60; Glucose 142 mg/dL (65-110); Potassium 4.1 mmol/L (3.4-5.0); Sodium 135 mmol/L (137-145)
[2021-08-04 07:11] LABS: INR 1.1
[2021-08-04 08:14] LABS: White Blood Count 1.6 K/mm3 (4.5-10.0)
[2021-08-04] MEDS: FLUTICASONE/SALMETEROL 115-21 MCG (*SP) INHALER 2 PUFF INHALATION ×2 (08:32→20:10)
[2021-08-04] MEDS: IPRATROPIUM BR 0.02% INH SOLN 0.5 MG/2.5 ML VIAL INHALATION ×2 (08:32→15:02)
[2021-08-04] MEDS: ALBUTEROL SULFATE NEB 2.5 MG/0.5 ML INH INHALATION ×2 (08:32→15:02)
[2021-08-04] MEDS: ENOXAPARIN 40 MG/0.4 ML SYRINGE SUB-Q (08:43)
[2021-08-04] MEDS: FLUTICASONE PROPIONATE 0.05% NA SPR 16 GM BTL (*BKC) 2 SPRAY NASAL ×2 (08:44→20:28)
[2021-08-04] MEDS: VITAMIN E 100 UNIT CAPSULE PO (08:44)
[2021-08-04] MEDS: ASPIRIN 81 MG ENTERIC TABLET PO (08:44)
[2021-08-04] MEDS: PYRIDOXINE HCL 50 MG TABLET 100 MG PO (08:44)
[2021-08-04] MEDS: CHOLECALCIFEROL 1,000 UNITS TABLET 1000 UNITS PO (08:44)
[2021-08-04] MEDS: MAGNESIUM OXIDE 400 MG TABLET PO (08:45)
[2021-08-04] MEDS: ZINC SULFATE 220 MG CAPSULE PO (08:45)
--- NOTE | 2021-08-04 12:50 | PDONCCN ---
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 He also has a history of lung cancer status post SBRT treatment. Patient has been dealing with fever chills with rigors. Patient was admitted to [facility] with MediPort infection and was treated with IV antibiotic for Mohs 2 weeks duration. He was also on oral Levaquin after the discharge. Due to his complain of fever chills blood cultures were performed that came back positive for Gram-negative infection. Patient also has been complaining of pain at the port MediPort site. Previously was decided to remove the MediPort if this infection comes back. Patient was instructed to go to the ER due to septicemia and port infection. Labs showed WBC count of 1.6 and hemoglobin of 12.3. ANC is 1200. Chest x-ray showed patchy bilateral airspace opacity consistent with atelectasis versus pneumonia. He was started on IV Levaquin. Blood cultures were redrawn and currently pending. Review of Systems - Review of Systems All systems reviewed & are unremarkable except as noted in HPI and bel - Neurologic Reports system reviewed and no additional complaints, except as documented [facility] Medical History: Medical History (Last Reviewed 08/03/21 @ 23:49 by Laura Galindo NP) Acute exacerbation of chronic obstructive pulmonary disease Anxiety Arthritis Axillary adenopathy Bronchitis Chronic GERD Chronic low back pain with sciatica Chronic right shoulder pain Constipation COPD exacerbation Coronary artery disease involving [place] coronary artery of [place] heart Depression Dysphagia Essential hypertension Follicular lymphoma Hernia Hypercholesterolemia Hypertension Hypertensive retinopathy Lung nodule Malignant neoplasm of upper lobe, right bronchus or lung Midline low back pain without sciatica Muscle rupture NSTEMI (non-ST elevated myocardial infarction) Peripheral vascular disease, unspecified Primary osteoarthritis of both hands Pulmonary cavitary lesion Surgical History: Surgical History (Last Reviewed 08/03/21 @ 23:50 by Laura Galindo NP) H/O [id number] bypass Double H/O bilateral cataract extraction H/O inguinal hernia repair History of right inguinal hernia repair Hx of tonsillectomy S/P CABG x 3 Family History: Family History (Last Reviewed 08/03/21 @ 23:50 by Laura Galindo NP) Father Family history of heart disease in male family member before age 55 Hypertension Mother Family history of heart disease in male family member before age 55 Hypertension Cerebrovascular accident Sibling COPD (chronic obstructive pulmonary disease) Other Family history of cardiovascular disease - Social History Social History: Social History (Last Updated 08/03/21 @ 23:51 by Laura Galindo NP) Gender Identity: Gender identity (if verbalized by the patient): Male Alcohol Use: Alcohol intake: never Drinks per week: 15 Substance Use: Substance use: never Substance use type: does not use Others: Spiritual care concerns: No Agree to blood products: Yes Smoking Status: Smoking status: Former smoker Tobacco type: cigarettes Second hand tobacco smoke exposure: Yes Smoking end date: 02/01/21 Smoking Pack-years: Smoking packs per day: 1 Smoking cigarettes per day: 20.0 Years smoked: 60 Smoking pack-years: 60.00 Comments: Additional smoking assessment comments: He stated that he quit smoking yesterday and he has tried Wellbutrin in the Meds Home Medications Medication Instructions Recorded Confirmed Typ
--- NOTE | 2021-08-04 14:00 | PM.IMPN ---
Progress Note: A&P Assessment and Plan (1) COVID-19: Code(s): U07.1 - COVID-19 Status: Acute Assessment and Plan: the patient is currently on 4 L per nasal cannula. I spoke with the photocomposing keyboard operator who suggested that we go ahead with the Decadron in the REM does severe. 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 Upon review of recent literature for sensitivities. Fluoroquinolones or Bactrim may cover this bacteria. The patient was started on p.o. Levaquin 3 days ago. Kang started him on IV Levaquin. Blood cultures were repeated. Source of infection is believed to be the Port-A-Cath. Surgery has been consulted for possible removal of Port-A-Cath however the patient was checked for COVID-19 and is positive from were choir oxygen at this time. Continue IV antibiotics. Plan to remove Port-A-Cath. (3) Essential hypertension: Code(s): I10 - Essential (primary) hypertension Status: Acute Assessment and Plan: Continue with metoprolol. (4) Hypercholesterolemia: Code(s): E78.00 - Pure hypercholesterolemia, unspecified Status: Acute Assessment and Plan: Continue with atorvastatin. (5) Coronary artery disease involving [place] coronary artery of [place] heart: Code(s): I25.10 - Atherosclerotic heart disease of [place] coronary artery without angina pectoris Status: Acute Assessment and Plan: Continue with aspirin. (6) Follicular lymphoma: Code(s): C82.90 - Follicular lymphoma, unspecified, unspecified site Status: Acute Assessment and Plan: Oncology has been consulted. (7) Depression: Code(s): F32.9 - Major depressive disorder, single episode, unspecified Status: Acute Assessment and Plan: Continue with Xanax for the anxiety. (8) Tobacco abuse: Code(s): Z72.0 - Tobacco use Status: Acute Assessment and Plan: patient has been strongly encouraged to stop smoking. Subjective Date/time seen: 08/04/21 15:00 Narrative: this is a 75-year-old male patient to has follicular lymphoma. The patient stated that 12 April 2021 he had a Port-A-Cath placed to his right upper chest in with then the 1st couple weeks patient was already in the emergency with an infection to the right Port-A-Cath. The patient has been dealing with an infection since then. The patient stated that he has not even been able to get chemotherapy because of the infection. He has a history of having COPD and paroxysmal SVT as well as atrial fibrillation right small cell lung cancer. Patient came to the emergency room to be evaluated for positive blood cultures. The patient recently was hospitalized at [facility]. The patient reports that he has been having chills and fever up to 102 at home. He states that he has rigors at night. He also has malaise. No cough. The patient had blood cultures drawn on an outpatient Hematology-Oncology visit. Patient's blood cultures were positive for stenotrophomonas maltophilia which have been present in blood cx since 04/2021. the patient stated that he has been taking Levaquin. He has been taking this for the last 3 days. Today the patient was found to be positive for COVID-19. He is currently on 4 L per nasal cannula and had not been on any oxygen at home. Chest x-ray was read as patchy bilateral airspace opacities consistent with atelectasis versus pneumonia. I spoke with my a collaborative the photocomposing keyboard operator who recommended that the patient be started on treatment for COVID-19. S: Patient is seen and examined at the bedside; he denies any complaints. Review of Systems Review of Systems: All systems reviewed & are unremarkable except as noted in HPI and below Constitutional: Constitutional: Reports as per HPI and Reports no addition
--- NOTE | 2021-08-04 14:00 | PM.CNGS ---
Assessment and Plan Assessment and plan (1) Port-A-Cath in place: Code(s): Z95.828 - Presence of other vascular implants and grafts Status: Acute Assessment and Plan: Patient presenting with bacteremia with blood cultures positive since April of 2021 for Stenotrophomonas maltophilia, and most recently repeated on 07/31/21 that are still positive. Blood cultures were repeated again yesterday when he came into the ER. We have been consulted by the Hospitalist to remove his Port-A-Cath, which is felt to be causing his bacteremia. The patient has also tested positive for COVID-19. Ideally, if this remains non-emergent, then we would prefer to remove his Port after his quarantine phase. I discussed this with the Hospitalist, who felt it was reasonable to continue antibiotics and monitor the patient until the Port is removed. If this becomes more urgent, we could consider removing his Port sooner depending on how he progresses. I discussed this plan with the patient and that this would be done in the OR. Description of the procedure, risks, benefits, and expected outcomes were discussed with the patient in detail. All questions were answered. Thank you for allowing us to see the patient in consultation and we will continue to follow along with you. (2) Bacteremia: Code(s): R78.81 - Bacteremia Status: Acute Assessment and Plan: Bacteremia with blood cultures positive for Stenotrophomonas maltophilia dating back to April 2021. Blood cultures repeated yesterday and pending. Continue IV antibiotics and monitoring. See plan above regarding Port removal. (3) COVID-19: Code(s): U07.1 - COVID-19 Status: Acute Assessment and Plan: Found to be COVID positive on admission, currently stable, but he is immunocompromised and neutropenic. He has mild symptoms that he reports started 2 days ago. Continue droplet precautions. Management per Hospitalist. (4) Follicular lymphoma: Code(s): C82.90 - Follicular lymphoma, unspecified, unspecified site Status: Acute Assessment and Plan: Oncology following. I discussed the case and our plan regarding Port removal with Dr. Broussard. He believes he may be able to complete the remaining 3 cycles of chemotherapy peripherally, but will look into this. (5) Coronary artery disease involving [place] coronary artery of [place] heart: Code(s): I25.10 - Atherosclerotic heart disease of [place] coronary artery without angina pectoris Status: Acute (6) Chronic obstructive pulmonary disease, unspecified: Code(s): J44.9 - Chronic obstructive pulmonary disease, unspecified Status: Acute (7) Peripheral vascular disease, unspecified: Code(s): I73.9 - Peripheral vascular disease, unspecified Status: Acute Additional Plan I have discussed the patient's case and plan of care with Dr. Tobar. History of Present Illness Consult details Consult date: 08/04/21 Reason for consult: other (Request for removal of Port-A-Cath, Bacteremia) Requesting physician: Zahraa Velez MD Narrative: This is a 75-year-old male with a history of follicular lymphoma on chemotherapy, with his last cycle on July 24, 2021. He has been receiving chemotherapy through a right subclavian Port-A-Cath, which was placed on 04/15/21. He started complaining of a fever a few days after his surgery, and was found to have bacteremia with positive blood cultures. He has had Stenotrophomonas maltophilia positive blood cultures since 04/19/21. He has been treated with antibiotics and was recently admitted to [facility] [place] for treatment of the bacteremia with IV antibiotics. He was sent home on oral Levaquin after discharge. He reports being seen by Infectious Disease while hospitalized, who recommended that he have his Port removed if his bacteremia returns. The patient reports that about a week after stopping his oral antibiotic, he developed
[2021-08-04 14:03] LABS: Hemoglobin 12.8 g/dL (14.0-18.0); Immature Platelet Fraction Pct 9.4 % (0.9-11.2); Mean Corpuscular HGB Conc 33.7 g/dl (32-36); Mean Corpuscular Hemoglobin 33.2 pg (26-34); Mean Corpuscular Volume 98.4 fl (80-100); Platelet Count Result 121 k/mm3 (150-375); Red Blood Count 3.86 M/mm3 (4.6-6.20); Red Cell Distribution Width 15.8 % (11.5-14.5); White Blood Count 2.4 K/mm3 (4.5-10.0)
[2021-08-04] MEDS: ATORVASTATIN 40 MG TABLET PO (20:28)
[2021-08-04] MEDS: REMDESIVIR 100 MG/NS 250 ML 100 MG/250 ML BAG 250 MG IVPB (20:32)
[2021-08-05] VITALS (21 sets, daily range): BP systolic 124–148; BP diastolic 59–89; PULSE 65–96; RESP 15–20; TEMP 36.1–37; O2SAT 91–98
[2021-08-05] MEDS: ALPRAZolam (*CRX) 0.5 MG TABLET PO ×2 (00:01→20:48)
[2021-08-05 07:16] LABS: Alanine Aminotransferase 48 U/L (4-50); Estimated CRCL calculation 75 ml/min; Estimated Glomerular Filt Rate > 60
[2021-08-05 07:23] LABS: Prothrombin Time 13.5 Seconds (11.1-14.7)
[2021-08-05] MEDS: ALBUTEROL SULFATE NEB 2.5 MG/0.5 ML INH INHALATION ×2 (08:53→16:40)
[2021-08-05] MEDS: FLUTICASONE/SALMETEROL 115-21 MCG (*SP) INHALER 2 PUFF INHALATION ×2 (08:53→21:56)
[2021-08-05] MEDS: METOPROLOL TARTRATE 25 MG TABLET PO ×2 (09:05→20:38)
--- NOTE | 2021-08-05 10:26 | WPDHPUPDATE1 ---
History and Physical Update Update Date/Time: 08/05/21 10:26 History and Physical has been reviewed, including an updated exam of the patient. There are NO changes in the patient's condition. Risks, benefits, and alternatives have been discussed and questions answered. Patient agrees to proceed with procedure.
[2021-08-05] MEDS: FLUTICASONE PROPIONATE 0.05% NA SPR 16 GM BTL (*BKC) 2 SPRAY NASAL (10:44)
--- NOTE | 2021-08-05 10:46 | PC.NURSE ---
To OR per bed at 1040, IV saline locked.
--- NOTE | 2021-08-05 10:52 | WPDANESEPPF ---
Anes - Initial Pre Proc Eval Procedure: Operation Date: 08/05/21 12:00 Proposed Procedures p Removal Gabby Cath - Shiv Tobar DO Date/Time: 08/05/21 10:52 Surgeon: Shruthi Beckwith MD Pre Op Diagnosis: port infection,sepsis Patient Data Age: 75 Gender: M Height: 1.73 m Weight: 74.6 kg Last Vital Signs Temp 36.1 C L 08/05/21 10:36 Pulse 83 08/05/21 10:36 Resp 18 08/05/21 10:36 BP 140/65 08/05/21 10:36 Pulse Ox 94 08/05/21 10:36 Allergies Allergy/AdvReac Type Severity Reaction Status Date / Time potassium iodide Allergy Unknown THROAT Verified 08/03/21 13:36 [facility] Home Medications Medication Instructions Recorded Confirmed Type metoprolol tartrate 50 mg tablet 25 mg PO Q12H 05/18/19 08/03/21 History atorvastatin 40 mg PO HS 02/06/21 08/03/21 History budesonide-formoterol [Symbicort] 2 puff INHALATION DAILY 02/06/21 08/03/21 History ipratropium-albuterol 3 ml INHALATION TID 02/06/21 08/03/21 History L-Arginine(alpha-ketoglutarat) 500 mg PO DAILY 04/08/21 08/03/21 History guaifenesin [Mucinex] 400 mg PO Q12H PRN 04/08/21 08/03/21 History pyridoxine (vitamin B6) 100 mg PO DAILY 04/08/21 08/03/21 History tramadol 50 mg PO Q6H PRN 04/08/21 08/04/21 History vitamin E 100 unit PO DAILY 04/08/21 08/03/21 History alprazolam 0.5 mg tablet 0.5 mg PO TID PRN #90 tablet 06/01/21 08/03/21 Rx fluticasone propionate 50 2 spray INTRANASAL BID #16 g 06/15/21 08/03/21 Rx mcg/actuation nasal spray,suspension albuterol sulfate 90 mcg/actuation See Rx Instructions .ROUTE 07/09/21 08/03/21 Rx aerosol inhaler .COMPLEX #8.5 each aspirin 81 mg tablet,delayed 81 mg PO DAILY 07/22/21 08/03/21 History release minocycline 100 mg capsule 100 mg PO PRN PRN cap 07/22/21 08/03/21 History cholecalciferol (vitamin D3) 25 mcg PO DAILY 07/23/21 08/03/21 History [Vitamin D3] magnesium 500 mg PO DAILY 07/23/21 08/03/21 History selenium 200 mcg PO DAILY 07/23/21 08/03/21 History zinc 50 mg PO DAILY 07/23/21 08/03/21 History levofloxacin 500 mg PO DAILY 08/03/21 08/04/21 History Laboratory Tests 08/04/21 08/05/21 08/05/21 13:48 06:40 06:40 WBC 2.4 K/mm3 L K/mm3 (4.5-10.0) RBC 3.86 M/mm3 L M/mm3 (4.6-6.20) Hgb 12.8 g/dL L g/dL (14.0-18.0) Hct 38.0 % L % (42.0-52.0) MCV 98.4 fl fl (80-100) MCH 33.2 pg pg (26-34) MCHC 33.7 g/dl g/dl (32-36) RDW 15.8 % H % (11.5-14.5) Plt Count 121 k/mm3 L k/mm3 (150-375) MPV 11.0 fl H fl (7.4-10.4) % Immature Plt Fraction 9.4 % % (0.9-11.2) PT 13.5 Seconds Seconds (11.1-14.7) INR 1.0 Creatinine 0.70 mg/dL mg/dL (0.7-1.3) Estim Creat Clear Calc 75 ml/min ml/min Estimated GFR > 60 (59 - ) ALT 48 U/L U/L (4-50) Patient hx anesthesia problems: none Family hx anesthesia problems: none Results Review: All pre-operative results and documents have been reviewed as part of the pre-operative evaluation. [facility] Past Medical History Medical History Acute exacerbation of chronic obstructive pulmonary disease Anxiety Arthritis Axillary adenopathy Bronchitis Chronic GERD Chronic low back pain with sciatica Chronic right shoulder pain Constipation COPD exacerbation Coronary artery disease involving [place] coronary artery of [place] heart Depression Dysphagia Essential hypertension Follicular lymphoma Hernia Hypercholesterolemia Hypertension Hypertensive retinopathy Lung nodule Malignant neoplasm of upper lobe, right bronchus or lung Midline low back pain without sciatica Muscle rupture NSTEMI (non-ST elevated myocardial infarction) Peripheral vascular disease, unspecified Port-A-Cath in place Primary osteoarthritis of both hands Pulmonary cavitary lesion Surgical History Surgical History (Reviewe
[2021-08-05] MEDS: LACTATED RINGERS 1,000 ML 30 ML IV CONT (11:00)
--- NOTE | 2021-08-05 11:23 | W.PM.PROC2 ---
Procedure Note - Detailed Date of Procedure 08/05/21 Pre-op Diagnosis port infection,sepsis Post-op Diagnosis same Procedure Performed Removal of Port-A-Cath Surgeon Shiv Tobar, DO Anesthesia MAC and local (1% lidocaine with epinephrine) Indications This is a 75-year-old man who presents with recurrent bacteremic infections. He has had multiple episodes of this since April of 2021. He has a Port-A-Cath in place and it is suspected that this is colonized with the infection. Decision was made to proceed with removal of Port-A-Cath. Findings The Port-A-Cath was removed. Once I entered into the capsule around the port there was some scant purulence drainage. The port and tubing was completely removed and the tip was intact. Pressure was held for several minutes and then the wound cavity was irrigated with sterile saline. Quarter-inch iodoform gauze was packed in the wound bed and then closed the lateral edges with 4-0 nylon simple interrupted sutures. Description of Procedure Procedure as well as risks, benefits, and alternatives were discussed with the patient. Written consent was obtained and placed in chart prior to procedure. Patient was brought back to surgical suite. He was placed supine on operating table. Time-out was done to confirm patient and procedure. IV sedation was then administered by the anesthesia department. His right chest area was prepped and draped in sterile fashion using chlorhexidine prep. 1% lidocaine with epinephrine was then infiltrated locally around the port. A 3 cm transverse incision was made directly over the port using a 15 blade scalpel. Electrocautery was used for hemostasis and for dissection down around the port. The port was freed up completely along with the tubing and then the port was completely removed with the tubing intact. Pressure was held at the tubing tract 5 minutes. There was 1 suture holding the port in place and this was removed. The wound bed was then irrigated with sterile saline. Hemostasis was achieved with electrocautery. Quarter-inch iodoform was packed within the wound bed. Skin edges then reapproximated laterally on the wound edges using 4-0 nylon simple interrupted sutures. 4 x 4 gauze and Tegaderm dressing were then applied. Patient was then awakened from anesthesia and transferred to recovery. Estimated Blood Loss 2 Packing Yes (1/4 iodoform gauze) Complications No immediate complications Condition stable Disposition floor
[2021-08-05] MEDS: ASPIRIN 81 MG ENTERIC TABLET PO (12:51)
[2021-08-05] MEDS: ZINC SULFATE 220 MG CAPSULE PO (12:51)
[2021-08-05] MEDS: CHOLECALCIFEROL 1,000 UNITS TABLET 1000 UNITS PO (12:51)
[2021-08-05] MEDS: MAGNESIUM OXIDE 400 MG TABLET PO (12:52)
[2021-08-05] MEDS: ENOXAPARIN 40 MG/0.4 ML SYRINGE SUB-Q (12:52)
[2021-08-05] MEDS: VITAMIN E 100 UNIT CAPSULE PO (12:52)
[2021-08-05 13:13] LABS: Hematocrit 33.6 % (42.0-52.0); Hemoglobin 11.7 g/dL (14.0-18.0); Immature Platelet Fraction Pct 9.6 % (0.9-11.2); Mean Corpuscular HGB Conc 34.8 g/dl (32-36); Mean Corpuscular Hemoglobin 33.9 pg (26-34); Mean Corpuscular Volume 97.4 fl (80-100); Mean Platelet Volume 11.7 fl (7.4-10.4); Platelet Count Result 130 k/mm3 (150-375); Red Blood Count 3.45 M/mm3 (4.6-6.20); Red Cell Distribution Width 15.8 % (11.5-14.5)
[2021-08-05] MEDS: PYRIDOXINE HCL 50 MG TABLET 100 MG PO (16:03)
[2021-08-05] MEDS: LACTULOSE 20 GM/30 ML UDC PO (16:04)
[2021-08-05] MEDS: IPRATROPIUM BR 0.02% INH SOLN 0.5 MG/2.5 ML VIAL INHALATION (16:40)
--- NOTE | 2021-08-05 18:27 | PM.IMPN ---
Progress Note: A&P Assessment and Plan (1) COVID-19: Code(s): U07.1 - COVID-19 Status: Acute Assessment and Plan: The patient previously required 4 L of oxygen per nasal cannula. Currently his breathing comfortably on room air. Will perform a home O2 evaluation tomorrow. 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 Upon review of recent literature for sensitivities. Fluoroquinolones or Bactrim may cover this bacteria. The patient was started on p.o. Levaquin 3 days ago. Kang started him on IV Levaquin. Blood cultures were repeated. Source of infection is believed to be the Port-A-Cath. Surgery has been consulted for possible removal of Port-A-Cath however the patient was checked for COVID-19 and is positive from were choir oxygen at this time. Continue IV antibiotics. Port-A-Cath was removed today.. (3) Essential hypertension: Code(s): I10 - Essential (primary) hypertension Status: Acute Assessment and Plan: Continue with metoprolol. Blood pressure reviewed; measurement in the 124/50 9-144/76 range. (4) Hypercholesterolemia: Code(s): E78.00 - Pure hypercholesterolemia, unspecified Status: Acute Assessment and Plan: Continue with atorvastatin. (5) Coronary artery disease involving [place] coronary artery of [place] heart: Code(s): I25.10 - Atherosclerotic heart disease of [place] coronary artery without angina pectoris Status: Acute Assessment and Plan: Continue with aspirin. (6) Follicular lymphoma: Code(s): C82.90 - Follicular lymphoma, unspecified, unspecified site Status: Acute Assessment and Plan: Oncology has been consulted. (7) Depression: Code(s): F32.9 - Major depressive disorder, single episode, unspecified Status: Acute Assessment and Plan: Continue with Xanax for the anxiety. (8) Tobacco abuse: Code(s): Z72.0 - Tobacco use Status: Acute Assessment and Plan: patient has been strongly encouraged to stop smoking. (9) Constipation: Code(s): K59.00 - Constipation, unspecified Status: Acute Assessment and Plan: Give Colace and lactulose as needed. Subjective Date/time seen: 08/05/21 18:00 Subjective: The patient was seen and examined at the bedside. He is relieve about port removal. She is complaining of constipation. Review of Systems Review of Systems: All systems reviewed & are unremarkable except as noted in HPI and below Constitutional: Constitutional: Reports as per HPI and Reports no additional constitutional complaints Eyes: Eyes: Reports as per HPI and Reports no additional eye complaints ENT: Reports system reviewed and no additional complaints, except as documented Cardiovascular: Cardiovascular: Reports no additional cardiovascular complaints Respiratory: Respiratory: Reports no additional respiratory complaints and Reports no additional respiratory complaints Gastrointestinal: Gastrointestinal: Reports as per HPI and Reports no additional gastrointestinal complaints Musculoskeletal: Musculoskeletal: Reports no additional musculoskeletal complaints Integumentary/Breasts: Skin/Breast: Reports system reviewed and no additional complaints, except as docu and Reports as per HPI Neurologic: Reports system reviewed and no additional complaints, except as documented and Reports as per HPI Psychiatric: Psychiatric: Reports no additional psychiatric complaints and Reports as per HPI Endocrine: Endocrine: Reports no additional endocrine complaints Hematologic/Lymphatic: Hematologic/Lymphatic: Reports no additional hematologic/lymphatic complaints Allergic/Immunologic: Allergic/Immunologic: Reports no additional allergic/immunologic complaints Exam Const: General: farhad
[2021-08-05] MEDS: ATORVASTATIN 40 MG TABLET PO (20:38)
[2021-08-05] MEDS: REMDESIVIR 100 MG/NS 250 ML 100 MG/250 ML BAG 250 MG IVPB (20:39)
[2021-08-05] MEDS: HYDROcodone/acetaminophen (*CRX) 7.5-325 MG TABLET 1 TAB PO (23:13)
[2021-08-06] VITALS (12 sets, daily range): BP systolic 135–142; BP diastolic 60–77; PULSE 69–80; RESP 16–20; TEMP 36–36.4; O2SAT 95–97
[2021-08-06] MEDS: IPRATROPIUM BR 0.02% INH SOLN 0.5 MG/2.5 ML VIAL INHALATION ×3 (03:19→14:20)
[2021-08-06] MEDS: ALBUTEROL SULFATE NEB 2.5 MG/0.5 ML INH INHALATION ×3 (03:20→14:20)
[2021-08-06 07:20] LABS: Prothrombin Time 13.2 Seconds (11.1-14.7)
[2021-08-06 07:23] LABS: Alanine Aminotransferase 52 U/L (4-50); Estimated CRCL calculation 75 ml/min; Estimated Glomerular Filt Rate > 60
[2021-08-06] MEDS: FLUTICASONE/SALMETEROL 115-21 MCG (*SP) INHALER 2 PUFF INHALATION (08:21)
[2021-08-06] MEDS: ENOXAPARIN 40 MG/0.4 ML SYRINGE SUB-Q (08:59)
[2021-08-06] MEDS: LACTULOSE 20 GM/30 ML UDC PO (08:59)
[2021-08-06] MEDS: PYRIDOXINE HCL 50 MG TABLET 100 MG PO (09:00)
[2021-08-06] MEDS: VITAMIN E 100 UNIT CAPSULE PO (09:00)
[2021-08-06] MEDS: guaiFENesin 12 HR 600 MG TABCR PO (09:00)
[2021-08-06] MEDS: CHOLECALCIFEROL 1,000 UNITS TABLET 1000 UNITS PO (09:00)
[2021-08-06] MEDS: ZINC SULFATE 220 MG CAPSULE PO (09:00)
[2021-08-06] MEDS: METOPROLOL TARTRATE 25 MG TABLET PO ×2 (09:00→21:17)
[2021-08-06] MEDS: MAGNESIUM OXIDE 400 MG TABLET PO (09:01)
[2021-08-06] MEDS: ASPIRIN 81 MG ENTERIC TABLET PO (09:01)
[2021-08-06] MEDS: FLUTICASONE PROPIONATE 0.05% NA SPR 16 GM BTL (*BKC) 2 SPRAY NASAL (09:05)
--- NOTE | 2021-08-06 10:54 | PM.IMPN ---
Progress Note: A&P Assessment and Plan (1) COVID-19: Code(s): U07.1 - COVID-19 Status: Acute Assessment and Plan: The patient previously required 4 L of oxygen per nasal cannula. Currently his breathing comfortably on room air. No supplemental oxygen needs on a home O2 evaluation. 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 Upon review of recent literature for sensitivities. Fluoroquinolones or Bactrim may cover this bacteria. The patient was started on p.o. Levaquin 3 days ago. Kang started him on IV Levaquin. Blood cultures were repeated. Source of infection is believed to be the Port-A-Cath. Surgery has been consulted for possible removal of Port-A-Cath however the patient was checked for COVID-19 and is positive from were choir oxygen at this time. Continue IV antibiotics. Port-A-Cath was removed today.. (3) Essential hypertension: Code(s): I10 - Essential (primary) hypertension Status: Acute Assessment and Plan: Continue with metoprolol. Blood pressure reviewed; measurement in the 124/50 9-144/76 range. (4) Hypercholesterolemia: Code(s): E78.00 - Pure hypercholesterolemia, unspecified Status: Acute Assessment and Plan: Continue with atorvastatin. (5) Coronary artery disease involving [place] coronary artery of [place] heart: Code(s): I25.10 - Atherosclerotic heart disease of [place] coronary artery without angina pectoris Status: Acute Assessment and Plan: Continue with aspirin. (6) Follicular lymphoma: Code(s): C82.90 - Follicular lymphoma, unspecified, unspecified site Status: Acute Assessment and Plan: Oncology has been consulted. (7) Depression: Code(s): F32.9 - Major depressive disorder, single episode, unspecified Status: Acute Assessment and Plan: Continue with Xanax for the anxiety. (8) Tobacco abuse: Code(s): Z72.0 - Tobacco use Status: Acute Assessment and Plan: patient has been strongly encouraged to stop smoking. (9) Constipation: Code(s): K59.00 - Constipation, unspecified Status: Acute Assessment and Plan: Give Colace and lactulose as needed. Subjective Date/time seen: 08/06/21 10:55 S: Patient was seen examined at the bedside. He is complaining of constipation. He had a small bowel movement today. Reports sore throat. Review of Systems Review of Systems: All systems reviewed & are unremarkable except as noted in HPI and below Constitutional: Constitutional: Reports as per HPI and Reports no additional constitutional complaints Eyes: Eyes: Reports as per HPI and Reports no additional eye complaints ENT: Reports system reviewed and no additional complaints, except as documented Cardiovascular: Cardiovascular: Reports no additional cardiovascular complaints Respiratory: Respiratory: Reports no additional respiratory complaints and Reports no additional respiratory complaints Gastrointestinal: Gastrointestinal: Reports as per HPI and Reports no additional gastrointestinal complaints Musculoskeletal: Musculoskeletal: Reports no additional musculoskeletal complaints Integumentary/Breasts: Skin/Breast: Reports system reviewed and no additional complaints, except as docu and Reports as per HPI Neurologic: Reports system reviewed and no additional complaints, except as documented and Reports as per HPI Psychiatric: Psychiatric: Reports no additional psychiatric complaints and Reports as per HPI Endocrine: Endocrine: Reports no additional endocrine complaints Hematologic/Lymphatic: Hematologic/Lymphatic: Reports no additional hematologic/lymphatic complaints Allergic/Immunologic: Allergic/Immunologic: Reports no additional allergic/immunologic complaints Exam Const
[2021-08-06 14:06] LABS: Hemoglobin 12.2 g/dL (14.0-18.0); Mean Corpuscular HGB Conc 34.9 g/dl (32-36); Mean Corpuscular Hemoglobin 33.2 pg (26-34); Mean Corpuscular Volume 95.4 fl (80-100); Mean Platelet Volume 11.5 fl (7.4-10.4); Platelet Count Result 163 k/mm3 (150-375); Red Blood Count 3.67 M/mm3 (4.6-6.20); Red Cell Distribution Width 15.9 % (11.5-14.5); White Blood Count 8.7 K/mm3 (4.5-10.0)
--- NOTE | 2021-08-06 14:17 | PM.PNGS ---
Progress Note: A&P Assessment and Plan (1) Bacteremia: Code(s): R78.81 - Bacteremia Status: Acute Assessment and Plan: Change bandage daily. Continue antibiotics per Hospitalist. OK to discharge from surgical standpoint. Patient can follow up in office in 1-2 weeks to remove stitches. (2) Port-A-Cath in place: Code(s): Z95.828 - Presence of other vascular implants and grafts Status: Acute Subjective Subjective Date/Time Seen: 08/06/21 14:17 Interval history: Doing well today. Sore where Port was. Exam Skin: Other: Packing removed. Minimal purulent drainage. Objective Data Vital Signs Vital Signs: Vital Signs - 24 hr 08/05/21 16:40 08/05/21 16:50 08/05/21 16:51 Temperature Pulse Rate 70 71 Respiratory Rate 20 20 Blood Pressure Pulse Oximetry 96 08/05/21 18:28 08/05/21 20:25 08/05/21 20:38 Temperature 36.2 C L 36.2 C L Pulse Rate 90 96 65 Respiratory Rate 20 15 Blood Pressure 138/89 138/76 Pulse Oximetry 96 95 08/05/21 21:57 08/06/21 00:19 08/06/21 04:30 Temperature 36.0 C L 36.4 C Pulse Rate 78 77 Respiratory Rate 16 18 Blood Pressure 142/71 H 139/77 Pulse Oximetry 94 95 95 08/06/21 08:11 08/06/21 08:21 08/06/21 08:26 Temperature 36.1 C L Pulse Rate 69 73 Respiratory Rate 18 20 Blood Pressure 135/60 Pulse Oximetry 96 95 08/06/21 09:00 08/06/21 10:25 Temperature 36.2 C L Pulse Rate 77 80 Respiratory Rate 18 Blood Pressure 138/75 Pulse Oximetry 96 Intake/Output Intake/Output: Intake & Output 08/03/21 08/04/21 08/05/21 08/06/21 23:59 23:59 23:59 23:59 Intake Total 2150 2590 1720 1580 Output Total 500 Balance 2150 2590 1720 1080 Meds/Results Medications: Active Medications Generic Name Dose Route Start Last Admin Trade Name Freq PRN Reason Stop Dose Admin Acetaminophen 650 mg 08/03/21 15:22 08/03/21 15:58 Acetaminophen 325 Mg Tablet PO 650 mg Q4H PRN Administration Mild Pain (1-3) or Fever Hydrocodone Bitart/Acetaminophen 1 tab 08/05/21 12:09 08/05/21 23:13 Hydrocodone/Acetaminophen (*Crx) 7.5-325 Mg Tablet PO 1 tab Q4H PRN Administration Pain Rated 7-10 Albuterol 2 puff 08/04/21 00:04 Albuterol Sulfate (*Sp) Aerosol 1 Puff INHALATION Q6HRT PRN Shortness Of Breath Albuterol 2.5 mg 08/04/21 08:00 08/06/21 08:21 Albuterol Sulfate Neb 2.5 Mg/0.5 Ml Inh INHALATION 2.5 mg Q8HRT SANDRA Administration Alprazolam 0.5 mg 08/04/21 00:05 08/05/21 20:48 Alprazolam (*Crx) 0.5 Mg Tablet PO 0.5 mg TID PRN Administration anxiety Aspirin 81 mg 08/04/21 09:00 08/06/21 09:01 Aspirin 81 Mg Enteric Tablet PO 81 mg DAILY SANDRA Administration Atorvastatin Calcium 40 mg 08/04/21 21:00 08/05/21 20:38 Atorvastatin 40 Mg Tablet PO 40 mg HS SANDRA Administration Benzocaine 1 lozenge 08/06/21 13:52 Benzocaine/Menthol (*Bkc) 18 Ea Lozenge PO PRN PRN Sore Throat Dexamethasone Sodium Phosphate 6 mg 08/03/21 23:20 08/06/21 09:01 Dexamethasone Sod Phos Inj 10 Mg/Ml 1 Ml Vial IV PUSH 08/12/21 09:01 6 mg DAILY SANDRA Administration Docusate Sodium 100 mg 08/05/21 15:13 Docusate Sodium 100 Mg Capsule PO Q12H PRN Constipation Enoxaparin Sodium 40 mg 08/04/21 09:00 08/06/21 08:59 Enoxaparin 40 Mg/0.4 Ml Syringe SUB-Q 40 mg DAILY SANDRA Administration Fluticasone Propionate 2 spray 08/04/21 09:00 08/06/21 09:05 Fluticasone Propionate 0.05% Na Spr 16 Gm Btl (*Bkc) NASAL 2 spray Q12HR SANDRA Administration Guaifenesin 600 mg 08/04/21 00:05 08/06/21 09:00 Guaifenesin 12 Hr 600 Mg Tabcr PO 600 mg Q12H PRN Administration Congestion Remdesivir 100 mg in 250 mls @ 250 mls/hr 08/04/21 22:00 08/05/21 20:39 IVPB 08/07/21 22:59 250 mls/hr Q24H SANDRA Administration Levofloxacin/Dextrose 750 mg in 150 mls @ 100 mls/hr 08/04/21 14:00 08/05/21 17:33 Levaquin 750 Mg/D5w
[2021-08-06] MEDS: HYDROcodone/acetaminophen (*CRX) 7.5-325 MG TABLET 1 TAB PO (14:23)
[2021-08-06] MEDS: BENZOCAINE/MENTHOL (*BKC) 18 EA LOZENGE 1 LOZENGE PO (16:37)
[2021-08-06] MEDS: polyethylene glycoL 3350 17 GM POWD.PACK PO (16:37)
[2021-08-06] MEDS: PHENOL/SOD PHENO SPRAY CHERRY (*BKC) 1 SPRAY MUCOUS MEM (16:38)
[2021-08-06] MEDS: REMDESIVIR 100 MG/NS 250 ML 100 MG/250 ML BAG 250 MG IVPB (21:17)
[2021-08-06] MEDS: ATORVASTATIN 40 MG TABLET PO (21:17)
[2021-08-06] MEDS: ALPRAZolam (*CRX) 0.5 MG TABLET PO (21:29)
--- NOTE | 2021-08-06 23:04 | PCRCNOTE ---
Pt scheduled for 20:00 inhaler tx and midnight nebulizer tx. Pt refused both, stated that he has been medicined out today. States he will take them tomorrow morning when next scheduled.
[2021-08-07] VITALS (10 sets, daily range): BP systolic 121–153; BP diastolic 46–93; PULSE 74–88; RESP 14–21; TEMP 36.1–36.9; O2SAT 95–100
[2021-08-07 07:50] LABS: Alanine Aminotransferase 52 U/L (4-50); Estimated CRCL calculation 86 ml/min; Estimated Glomerular Filt Rate > 60
--- NOTE | 2021-08-07 08:47 | PM.PNGS ---
Progress Note: A&P Assessment and Plan (1) Bacteremia: Code(s): R78.81 - Bacteremia Status: Acute Assessment and Plan: Change bandage daily. Continue antibiotics per Hospitalist. OK to discharge from surgical standpoint. Patient can follow up in office in 1-2 weeks to remove stitches. (2) Port-A-Cath in place: Code(s): Z95.828 - Presence of other vascular implants and grafts Status: Acute Subjective Subjective Date/Time Seen: 08/07/21 08:47 Interval history: No new complaints. Exam Skin: Other: Right chest wound with minimal blood tinged drainage. Objective Data Vital Signs Vital Signs: Vital Signs - 24 hr 08/06/21 09:00 08/06/21 10:25 08/06/21 14:15 Temperature 36.2 C L Pulse Rate 77 80 70 Respiratory Rate 18 20 Blood Pressure 138/75 Pulse Oximetry 96 08/06/21 14:57 08/06/21 21:17 08/06/21 23:04 Temperature 36.2 C L Pulse Rate 77 77 Respiratory Rate 16 Blood Pressure 139/71 Pulse Oximetry 97 96 Intake/Output Intake/Output: Intake & Output 08/04/21 08/05/21 08/06/21 08/07/21 23:59 23:59 23:59 23:59 Intake Total 2590 19690 750 Output Total 500 Balance 2591969 1570 750 Meds/Results Medications: Active Medications Generic Name Dose Route Start Last Admin Trade Name Freq PRN Reason Stop Dose Admin Acetaminophen 650 mg 08/03/21 15:22 08/03/21 15:58 Acetaminophen 325 Mg Tablet PO 650 mg Q4H PRN Administration Mild Pain (1-3) or Fever Hydrocodone Bitart/Acetaminophen 1 tab 08/05/21 12:09 08/06/21 14:23 Hydrocodone/Acetaminophen (*Crx) 7.5-325 Mg Tablet PO 1 tab Q4H PRN Administration Pain Rated 7-10 Albuterol 2 puff 08/04/21 00:04 Albuterol Sulfate (*Sp) Aerosol 1 Puff INHALATION Q6HRT PRN Shortness Of Breath Albuterol 2.5 mg 08/04/21 08:00 08/06/21 23:03 Albuterol Sulfate Neb 2.5 Mg/0.5 Ml Inh INHALATION Not Given Q8HRT [facility] Alprazolam 0.5 mg 08/04/21 00:05 08/06/21 21:29 Alprazolam (*Crx) 0.5 Mg Tablet PO 0.5 mg TID PRN Administration anxiety Aspirin 81 mg 08/04/21 09:00 08/06/21 09:01 Aspirin 81 Mg Enteric Tablet PO 81 mg DAILY SANDRA Administration Atorvastatin Calcium 40 mg 08/04/21 21:00 08/06/21 21:17 Atorvastatin 40 Mg Tablet PO 40 mg HS SANDRA Administration Benzocaine 1 lozenge 08/06/21 13:52 08/06/21 16:37 Benzocaine/Menthol (*Bkc) 18 Ea Lozenge PO 1 lozenge PRN PRN Administration Sore Throat Dexamethasone Sodium Phosphate 6 mg 08/03/21 23:20 08/06/21 09:01 Dexamethasone Sod Phos Inj 10 Mg/Ml 1 Ml Vial IV PUSH 08/12/21 09:01 6 mg DAILY SANDRA Administration Docusate Sodium 100 mg 08/05/21 15:13 Docusate Sodium 100 Mg Capsule PO Q12H PRN Constipation Enoxaparin Sodium 40 mg 08/04/21 09:00 08/06/21 08:59 Enoxaparin 40 Mg/0.4 Ml Syringe SUB-Q 40 mg DAILY SANDRA Administration Fluticasone Propionate 2 spray 08/04/21 09:00 08/07/21 00:29 Fluticasone Propionate 0.05% Na Spr 16 Gm Btl (*Bkc) NASAL Not Given Q12HR SANDRA Guaifenesin 600 mg 08/04/21 00:05 08/06/21 09:00 Guaifenesin 12 Hr 600 Mg Tabcr PO 600 mg Q12H PRN Administration Congestion Remdesivir 100 mg in 250 mls @ 250 mls/hr 08/04/21 22:00 08/06/21 22:17 IVPB 08/07/21 22:59 Infused Q24H SANDRA Infusion Levofloxacin/Dextrose 750 mg in 150 mls @ 100 mls/hr 08/04/21 14:00 08/06/21 16:37 Levaquin 750 Mg/D5w 150 Ml IVPB 100 mls/hr Q24H SANDRA Administration Ibuprofen 400 mg 08/03/21 15:22 Ibuprofen 400 Mg Tablet PO Q6H PRN Mild Pain (1-3) or Fever Ipratropium [place] 0.5 mg 08/04/21 08:00 08/06/21 23:03 Ipratropium Br 0.02% Inh Soln 0.5 Mg/2.5 Ml Vial INHALATION 09/03/21 07:59 Not Given Q8HRT [facility] Lactulose 20 gm 08/05/21 15:15 08/06/21 08:59 Lactulose 20 Gm/30 Ml Udc PO 20 gm QAM [facility] Administration Magnesium Oxide 400 mg 08/04/21 09:00 08/06/21
[2021-08-07 09:00] LABS: INR 1.1; Prothrombin Time 13.6 Seconds (11.1-14.7)
[2021-08-07] MEDS: VITAMIN E 100 UNIT CAPSULE PO (09:34)
[2021-08-07] MEDS: ZINC SULFATE 220 MG CAPSULE PO (09:34)
[2021-08-07] MEDS: PYRIDOXINE HCL 50 MG TABLET 100 MG PO (09:34)
[2021-08-07] MEDS: LACTULOSE 20 GM/30 ML UDC PO (09:34)
[2021-08-07] MEDS: METOPROLOL TARTRATE 25 MG TABLET PO ×2 (09:35→21:27)
[2021-08-07] MEDS: CHOLECALCIFEROL 1,000 UNITS TABLET 1000 UNITS PO (09:35)
[2021-08-07] MEDS: ENOXAPARIN 40 MG/0.4 ML SYRINGE SUB-Q (09:35)
[2021-08-07] MEDS: ASPIRIN 81 MG ENTERIC TABLET PO (09:35)
[2021-08-07] MEDS: MAGNESIUM OXIDE 400 MG TABLET PO (09:35)
[2021-08-07] MEDS: FLUTICASONE PROPIONATE 0.05% NA SPR 16 GM BTL (*BKC) 2 SPRAY NASAL ×2 (09:36→21:32)
[2021-08-07] MEDS: DOCUSATE SODIUM 100 MG CAPSULE PO (09:41)
--- NOTE | 2021-08-07 10:31 | PM.IMPN ---
Progress Note: A&P Assessment and Plan (1) COVID-19: Code(s): U07.1 - COVID-19 Status: Acute Assessment and Plan: Acute respiratory failure, resolved. The patient previously required 4 L of oxygen per nasal cannula. Currently his breathing comfortably on room air. No supplemental oxygen needs on a home O2 evaluation. 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 Upon review of recent literature for sensitivities. Fluoroquinolones or Bactrim may cover this bacteria. The patient was started on p.o. Levaquin 3then switched to IV Levaquin. Blood cultures were repeated. Source of infection is believed to be the Port-A-Cath. Surgery has been consulted for possible removal of Port-A-Cath . Port-A-Cath was removed on 08/05/2020. Continue IV antibiotic. Consider discharging 7 days after sterile blood culture results... (3) Essential hypertension: Code(s): I10 - Essential (primary) hypertension Status: Acute Assessment and Plan: Continue with metoprolol. Blood pressure reviewed; measurement in the 135/80-142/71 range. (4) Hypercholesterolemia: Code(s): E78.00 - Pure hypercholesterolemia, unspecified Status: Acute Assessment and Plan: Continue with atorvastatin. (5) Coronary artery disease involving [place] coronary artery of [place] heart: Code(s): I25.10 - Atherosclerotic heart disease of [place] coronary artery without angina pectoris Status: Acute Assessment and Plan: Continue with aspirin. (6) Follicular lymphoma: Code(s): C82.90 - Follicular lymphoma, unspecified, unspecified site Status: Acute Assessment and Plan: Oncology has been consulted. (7) Depression: Code(s): F32.9 - Major depressive disorder, single episode, unspecified Status: Acute Assessment and Plan: Continue with Xanax for the anxiety. (8) Tobacco abuse: Code(s): Z72.0 - Tobacco use Status: Acute Assessment and Plan: patient has been strongly encouraged to stop smoking. (9) Constipation: Code(s): K59.00 - Constipation, unspecified Status: Acute Assessment and Plan: Give Colace and lactulose as needed. Senokot started today. Subjective Date/time seen: 08/07/21 16:45 S: Patient was seen and examined at the bedside. He reports constipation. There is mild pain at previous Port-A-Cath insertions site. Review of Systems Review of Systems: All systems reviewed & are unremarkable except as noted in HPI and below Constitutional: Constitutional: Reports as per HPI and Reports no additional constitutional complaints Eyes: Eyes: Reports as per HPI and Reports no additional eye complaints ENT: Reports system reviewed and no additional complaints, except as documented Cardiovascular: Cardiovascular: Reports no additional cardiovascular complaints Respiratory: Respiratory: Reports no additional respiratory complaints and Reports no additional respiratory complaints Gastrointestinal: Gastrointestinal: Reports as per HPI and Reports no additional gastrointestinal complaints Musculoskeletal: Musculoskeletal: Reports no additional musculoskeletal complaints Integumentary/Breasts: Skin/Breast: Reports system reviewed and no additional complaints, except as docu and Reports as per HPI Neurologic: Reports system reviewed and no additional complaints, except as documented and Reports as per HPI Psychiatric: Psychiatric: Reports no additional psychiatric complaints and Reports as per HPI Endocrine: Endocrine: Reports no additional endocrine complaints Hematologic/Lymphatic: Hematologic/Lymphatic: Reports no additional hematologic/lymphatic complaints Allergic/Immunologic: Allergic/Immunologic: Reports no additional allergic/immunologic complaints
[2021-08-07] MEDS: ALBUTEROL SULFATE NEB 2.5 MG/0.5 ML INH INHALATION ×2 (10:42→23:47)
[2021-08-07] MEDS: IPRATROPIUM BR 0.02% INH SOLN 0.5 MG/2.5 ML VIAL INHALATION ×2 (10:42→23:47)
[2021-08-07] MEDS: SENNOSIDES 8.6 MG TABLET PO ×2 (13:32→21:37)
[2021-08-07] MEDS: REMDESIVIR 100 MG/NS 250 ML 100 MG/250 ML BAG 250 MG IVPB (21:26)
[2021-08-07] MEDS: ATORVASTATIN 40 MG TABLET PO (21:31)
[2021-08-07] MEDS: HYDROcodone/acetaminophen (*CRX) 7.5-325 MG TABLET 1 TAB PO (21:36)
[2021-08-07] MEDS: ALPRAZolam (*CRX) 0.5 MG TABLET PO (21:37)
--- NOTE | 2021-08-07 23:36 | PCRCNOTE ---
window of time for administration has passed, see next available administration.
[2021-08-08] VITALS (12 sets, daily range): BP systolic 126–157; BP diastolic 59–81; PULSE 72–88; RESP 16–20; TEMP 36–36.8; O2SAT 95–98
[2021-08-08] MEDS: ALBUTEROL SULFATE NEB 2.5 MG/0.5 ML INH INHALATION ×3 (08:34→22:54)
[2021-08-08] MEDS: IPRATROPIUM BR 0.02% INH SOLN 0.5 MG/2.5 ML VIAL INHALATION ×3 (08:34→22:54)
[2021-08-08] MEDS: FLUTICASONE/SALMETEROL 115-21 MCG (*SP) INHALER 2 PUFF INHALATION (08:34)
[2021-08-08] MEDS: PYRIDOXINE HCL 50 MG TABLET 100 MG PO (10:08)
[2021-08-08] MEDS: LACTULOSE 20 GM/30 ML UDC PO (10:08)
[2021-08-08] MEDS: MAGNESIUM OXIDE 400 MG TABLET PO (10:09)
[2021-08-08] MEDS: METOPROLOL TARTRATE 25 MG TABLET PO ×2 (10:09→21:19)
[2021-08-08] MEDS: VITAMIN E 100 UNIT CAPSULE PO (10:09)
[2021-08-08] MEDS: ZINC SULFATE 220 MG CAPSULE PO (10:09)
[2021-08-08] MEDS: ENOXAPARIN 40 MG/0.4 ML SYRINGE SUB-Q (10:09)
[2021-08-08] MEDS: CHOLECALCIFEROL 1,000 UNITS TABLET 1000 UNITS PO (10:10)
[2021-08-08] MEDS: ASPIRIN 81 MG ENTERIC TABLET PO (10:10)
[2021-08-08] MEDS: HYDROcodone/acetaminophen (*CRX) 7.5-325 MG TABLET 1 TAB PO ×2 (10:13→21:19)
--- NOTE | 2021-08-08 12:02 | PM.IMPN ---
Progress Note: A&P Assessment and Plan (1) COVID-19: Code(s): U07.1 - COVID-19 Status: Acute Assessment and Plan: Acute respiratory failure, resolved. The patient previously required 4 L of oxygen per nasal cannula. Currently his breathing comfortably on room air. No supplemental oxygen needs on a home O2 evaluation. 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 Upon review of recent literature for sensitivities. Fluoroquinolones or Bactrim may cover this bacteria. The patient was started on p.o. Levaquin 3then switched to IV Levaquin. Blood cultures were repeated. Source of infection is believed to be the Port-A-Cath. Surgery has been consulted for possible removal of Port-A-Cath . Port-A-Cath was removed on 08/05/2020. Continue IV antibiotic. Consider discharging 7 days after sterile blood culture results... (3) Essential hypertension: Code(s): I10 - Essential (primary) hypertension Status: Acute Assessment and Plan: Continue with metoprolol. Blood pressure reviewed; measurement in the 135/80-142/71 range. (4) Hypercholesterolemia: Code(s): E78.00 - Pure hypercholesterolemia, unspecified Status: Acute Assessment and Plan: Continue with atorvastatin. (5) Coronary artery disease involving [place] coronary artery of [place] heart: Code(s): I25.10 - Atherosclerotic heart disease of [place] coronary artery without angina pectoris Status: Acute Assessment and Plan: Continue with aspirin. (6) Follicular lymphoma: Code(s): C82.90 - Follicular lymphoma, unspecified, unspecified site Status: Acute Assessment and Plan: Oncology has been consulted. (7) Depression: Code(s): F32.9 - Major depressive disorder, single episode, unspecified Status: Acute Assessment and Plan: Continue with Xanax for the anxiety. (8) Tobacco abuse: Code(s): Z72.0 - Tobacco use Status: Acute Assessment and Plan: patient has been strongly encouraged to stop smoking. (9) Constipation: Code(s): K59.00 - Constipation, unspecified Status: Acute Assessment and Plan: Give Colace and lactulose as needed. Senokot started today. Additional Plan 08/08/1999 Patient repeat culture initial report is negative so far.. Plan is to continue current treatment. Monitor oxygen. Possible discharge on Tuesday. Subjective Date/time seen: 08/08/21 12:02 Patient was seen during the morning rounds today. Mild shortness of breath no chest. No abdominal pain, nausea, no vomiting. Mood stable. Review of Systems Review of Systems: All systems reviewed & are unremarkable except as noted in HPI and below Constitutional: Constitutional: Reports as per HPI and Reports no additional constitutional complaints Eyes: Eyes: Reports as per HPI and Reports no additional eye complaints ENT: Reports system reviewed and no additional complaints, except as documented Cardiovascular: Cardiovascular: Reports no additional cardiovascular complaints Respiratory: Respiratory: Reports no additional respiratory complaints and Reports no additional respiratory complaints Gastrointestinal: Gastrointestinal: Reports as per HPI and Reports no additional gastrointestinal complaints Musculoskeletal: Musculoskeletal: Reports no additional musculoskeletal complaints Integumentary/Breasts: Skin/Breast: Reports system reviewed and no additional complaints, except as docu and Reports as per HPI Neurologic: Reports system reviewed and no additional complaints, except as documented and Reports as per HPI Psychiatric: Psychiatric: Reports no additional psychiatric complaints and Reports as per HPI Endocrine: Endocrine: Reports no additional endocrine complaints Hematologic/Lymphatic
[2021-08-08] MEDS: polyethylene glycoL 3350 17 GM POWD.PACK PO (13:43)
[2021-08-08] MEDS: FLUTICASONE PROPIONATE 0.05% NA SPR 16 GM BTL (*BKC) 2 SPRAY NASAL (21:18)
[2021-08-08] MEDS: ATORVASTATIN 40 MG TABLET PO (21:19)
[2021-08-08] MEDS: ALPRAZolam (*CRX) 0.5 MG TABLET PO (21:19)
[2021-08-08] MEDS: SENNOSIDES 8.6 MG TABLET PO (21:19)
[2021-08-09] VITALS (13 sets, daily range): BP systolic 119–156; BP diastolic 61–90; PULSE 78–95; RESP 16–20; TEMP 36–36.4; O2SAT 94–99
[2021-08-09] MEDS: ALBUTEROL SULFATE NEB 2.5 MG/0.5 ML INH INHALATION ×2 (09:25→14:39)
[2021-08-09] MEDS: IPRATROPIUM BR 0.02% INH SOLN 0.5 MG/2.5 ML VIAL INHALATION ×2 (09:26→14:41)
[2021-08-09] MEDS: FLUTICASONE/SALMETEROL 115-21 MCG (*SP) INHALER 2 PUFF INHALATION (09:26)
[2021-08-09] MEDS: PYRIDOXINE HCL 50 MG TABLET 100 MG PO (09:32)
[2021-08-09] MEDS: ASPIRIN 81 MG ENTERIC TABLET PO (09:33)
[2021-08-09] MEDS: MAGNESIUM OXIDE 400 MG TABLET PO (09:33)
[2021-08-09] MEDS: CHOLECALCIFEROL 1,000 UNITS TABLET 1000 UNITS PO (09:33)
[2021-08-09] MEDS: METOPROLOL TARTRATE 25 MG TABLET PO ×2 (09:33→21:07)
[2021-08-09] MEDS: LACTULOSE 20 GM/30 ML UDC PO (09:34)
[2021-08-09] MEDS: HYDROcodone/acetaminophen (*CRX) 7.5-325 MG TABLET 1 TAB PO (09:35)
[2021-08-09] MEDS: FLUTICASONE PROPIONATE 0.05% NA SPR 16 GM BTL (*BKC) 2 SPRAY NASAL ×2 (09:36→21:07)
[2021-08-09] MEDS: ZINC SULFATE 220 MG CAPSULE PO (09:36)
[2021-08-09] MEDS: VITAMIN E 100 UNIT CAPSULE PO (09:36)
[2021-08-09] MEDS: ENOXAPARIN 40 MG/0.4 ML SYRINGE SUB-Q (09:36)
--- NOTE | 2021-08-09 09:47 | PM.IMPN ---
Progress Note: A&P Assessment and Plan (1) COVID-19: Code(s): U07.1 - COVID-19 Status: Acute Assessment and Plan: Acute respiratory failure, resolved. The patient previously required 4 L of oxygen per nasal cannula. Currently his breathing comfortably on room air. No supplemental oxygen needs on a home O2 evaluation. 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 Upon review of recent literature for sensitivities. Fluoroquinolones or Bactrim may cover this bacteria. The patient was started on p.o. Levaquin 3then switched to IV Levaquin. Blood cultures were repeated. Source of infection is believed to be the Port-A-Cath. Surgery has been consulted for possible removal of Port-A-Cath . Port-A-Cath was removed on 08/05/2020. Continue IV antibiotic. Consider discharging 7 days after sterile blood culture results... (3) Essential hypertension: Code(s): I10 - Essential (primary) hypertension Status: Acute Assessment and Plan: Continue with metoprolol. Blood pressure reviewed; measurement in the 135/80-142/71 range. (4) Hypercholesterolemia: Code(s): E78.00 - Pure hypercholesterolemia, unspecified Status: Acute Assessment and Plan: Continue with atorvastatin. (5) Coronary artery disease involving [place] coronary artery of [place] heart: Code(s): I25.10 - Atherosclerotic heart disease of [place] coronary artery without angina pectoris Status: Acute Assessment and Plan: Continue with aspirin. (6) Follicular lymphoma: Code(s): C82.90 - Follicular lymphoma, unspecified, unspecified site Status: Acute Assessment and Plan: Oncology has been consulted. (7) Depression: Code(s): F32.9 - Major depressive disorder, single episode, unspecified Status: Acute Assessment and Plan: Continue with Xanax for the anxiety. (8) Tobacco abuse: Code(s): Z72.0 - Tobacco use Status: Acute Assessment and Plan: patient has been strongly encouraged to stop smoking. (9) Constipation: Code(s): K59.00 - Constipation, unspecified Status: Acute Assessment and Plan: Give Colace and lactulose as needed. Senokot started today. Additional Plan 08/08/2021 Patient repeat culture initial report is negative so far.. Plan is to continue current treatment. Monitor oxygen. Possible discharge on Tuesday. 08/09/2021 Patient is clinically better. Patient IV line came out and we have difficulty starting with IV. Will switch to p.o. Levaquin. Discharge home in the morning. Subjective Date/time seen: 08/09/21 09:47 Patient was seen during the morning rounds today. Feeling much better. No shortness of breath or chest pain. No abdominal pain, nausea, no vomiting. Mood stable. Review of Systems Review of Systems: All systems reviewed & are unremarkable except as noted in HPI and below Constitutional: Constitutional: Reports as per HPI and Reports no additional constitutional complaints Eyes: Eyes: Reports as per HPI and Reports no additional eye complaints ENT: Reports system reviewed and no additional complaints, except as documented Cardiovascular: Cardiovascular: Reports no additional cardiovascular complaints Respiratory: Respiratory: Reports no additional respiratory complaints and Reports no additional respiratory complaints Gastrointestinal: Gastrointestinal: Reports as per HPI and Reports no additional gastrointestinal complaints Musculoskeletal: Musculoskeletal: Reports no additional musculoskeletal complaints Integumentary/Breasts: Skin/Breast: Reports system reviewed and no additional complaints, except as docu and Reports as per HPI Neurologic: Reports system reviewed and no additional complaints, except as documented and Reports
[2021-08-09] MEDS: BISACODYL 5 MG TABLET EC 10 MG PO (12:41)
[2021-08-09] MEDS: DEXAMETHASONE 2 MG TABLET 6 MG PO (12:42)
[2021-08-09] MEDS: levoFLOXacin 750 MG TABLET PO (16:10)
[2021-08-09] MEDS: ALPRAZolam (*CRX) 0.5 MG TABLET PO (16:12)
[2021-08-09] MEDS: ATORVASTATIN 40 MG TABLET PO (21:06)
[2021-08-10] VITALS (7 sets, daily range): BP systolic 127–158; BP diastolic 62–85; PULSE 78–89; RESP 16–18; TEMP 35.9–36.3; O2SAT 96–99
[2021-08-10 07:23] LABS: Basophils Absolute Auto 0.1 K/mm3 (0.0-0.1); Basophils Percent Auto 1.3 % (0.2-1.2); Eosinophils Absolute Auto 0.1 K/mm3 (0-0.3); Eosinophils Percent Auto 0.8 % (0-4.4); Hematocrit 37.5 % (42.0-52.0); Immature Granulocyte Absolute 0.59 K/mm3 (0.00-0.031); Immature Granulocyte Percent A 5.9 % (0-0.5); Lymphocytes Absolute Auto 0.49 K/mm3 (0.9-3.2); Lymphocytes Percent Auto 4.9 % (18.3-44.2); Mean Corpuscular HGB Conc 34.7 g/dl (32-36); Mean Corpuscular Hemoglobin 32.7 pg (26-34); Mean Corpuscular Volume 94.5 fl (80-100); Mean Platelet Volume 10.8 fl (7.4-10.4); Monocytes Absolute Auto 1.4 K/mm3 (0.1-0.6); Monocytes Percent Auto 14.2 % (2.6-8.5); Neutrophils Absolute Auto 7.3 K/mm3 (1.3-6.7); Neutrophils Percent Auto 72.9 % (45.5-73.1); Platelet Count Result 230 k/mm3 (150-375); Red Blood Count 3.97 M/mm3 (4.6-6.20); Red Cell Distribution Width 15.2 % (11.5-14.5)
[2021-08-10] MEDS: IPRATROPIUM BR 0.02% INH SOLN 0.5 MG/2.5 ML VIAL INHALATION (08:40)
[2021-08-10] MEDS: ALBUTEROL SULFATE NEB 2.5 MG/0.5 ML INH INHALATION (08:40)
[2021-08-10] MEDS: FLUTICASONE/SALMETEROL 115-21 MCG (*SP) INHALER 2 PUFF INHALATION (08:41)
[2021-08-10 09:04] LABS: Anisocytosis 1+ (NORMAL); Ovalocytes 1+ (NORMAL); Platelet Estimate Adequate (Adequate)
[2021-08-10] MEDS: HYDROcodone/acetaminophen (*CRX) 7.5-325 MG TABLET 1 TAB PO (09:17)
[2021-08-10] MEDS: CHOLECALCIFEROL 1,000 UNITS TABLET 1000 UNITS PO (09:18)
[2021-08-10] MEDS: PYRIDOXINE HCL 50 MG TABLET 100 MG PO (09:18)
[2021-08-10] MEDS: LACTULOSE 20 GM/30 ML UDC PO (09:18)
[2021-08-10] MEDS: DEXAMETHASONE 2 MG TABLET 6 MG PO (09:18)
[2021-08-10] MEDS: MAGNESIUM OXIDE 400 MG TABLET PO (09:18)
[2021-08-10] MEDS: VITAMIN E 100 UNIT CAPSULE PO (09:19)
[2021-08-10] MEDS: FLUTICASONE PROPIONATE 0.05% NA SPR 16 GM BTL (*BKC) 2 SPRAY NASAL (09:19)
[2021-08-10] MEDS: ASPIRIN 81 MG ENTERIC TABLET PO (09:19)
[2021-08-10] MEDS: METOPROLOL TARTRATE 25 MG TABLET PO (09:19)
[2021-08-10] MEDS: ZINC SULFATE 220 MG CAPSULE PO (09:19)
--- NOTE | 2021-08-10 09:30 | PM.DS ---
DS: Admitting Diagnosis Discharge Date 08/10/21929 Admitting Diagnosis Bacteremia/COVID-19 DS: Discharge Diagnosis Discharge Diagnosis (1) COVID-19: Code(s): U07.1 - COVID-19 Status: Acute Assessment and Plan: Acute respiratory failure, resolved. The patient previously required 4 L of oxygen per nasal cannula. Currently his breathing comfortably on room air. No supplemental oxygen needs on a home O2 evaluation. Positive test findings from this visit Chest xray does indicated atelectasis vs PNA So it was a very short course of COVID PNA (2) Pneumonia due to COVID-19 virus: Code(s): U07.1 - COVID-19; J12.82 - Pneumonia due to coronavirus disease 2018 Status: Acute Assessment and Plan: See above (3) Blood bacterial culture positive: Code(s): R78.81 - Bacteremia Status: Acute Assessment and Plan: stenotrophomonas maltophilia which have been present in blood cx since 04/2021. Upon review of recent literature for sensitivities. Fluoroquinolones or Bactrim may cover this bacteria. The patient was started on p.o. Levaquin 3then switched to IV Levaquin. Blood cultures were repeated. Source of infection is believed to be the Port-A-Cath. Surgery has been consulted for possible removal of Port-A-Cath . Port-A-Cath was removed on 08/05/2020. Continue IV antibiotic. Consider discharging 7 days after sterile blood culture results... (4) Essential hypertension: Code(s): I10 - Essential (primary) hypertension Status: Acute Assessment and Plan: Continue with metoprolol. Blood pressure reviewed; measurement in the 135/80-142/71 range. (5) Hypercholesterolemia: Code(s): E78.00 - Pure hypercholesterolemia, unspecified Status: Acute Assessment and Plan: Continue with atorvastatin. 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 (7) Follicular lymphoma: Code(s): C82.90 - Follicular lymphoma, unspecified, unspecified site Status: Acute Assessment and Plan: Oncology has been consulted. (8) Depression: Code(s): F32.9 - Major depressive disorder, single episode, unspecified Status: Acute Assessment and Plan: Continue with Xanax for the anxiety. (9) Tobacco abuse: Code(s): Z72.0 - Tobacco use Status: Acute Assessment and Plan: patient has been strongly encouraged to stop smoking. (10) Constipation: Code(s): K59.00 - Constipation, unspecified Status: Acute Assessment and Plan: Give Colace and lactulose as needed. Senokot started today. DS: Summary Hospital Course Hospital Course: Patient is 75-year-old male with a past medical history of follicular lymphoma, hyperlipidemia, CAD, COPD, emphysema who presented to the ED for positive blood cultures. Patient has been admitted for bacteremia of stenotrophomonas maltophilia. He was then give IV levaquin. He was able to complete 6 doses of the IV levaquin, and has been converted to PO. Surgery was consulted the port was removed. Patient was also found to be COVID positive. Patient had been vaccinated x2. Patient was noted to be hypoxic and was placed on 4 L nasal cannula however symptoms quickly resolved. Patient is stable for discharge today. WBCs are 10 today. Vital signs labs have remained stable. He has no complaints today. He is very ready to go, stating that he has been locked in skilled nursing for the last 7 days. His only complaint is constipation. He is currently on docusate, miralax, lactulose. He is also complaining of a sore throat. However, it is not that bad since the patient was able to yell at me about the vaccination killing roughly [id number] people. I did speak with Dr. Infante about the case
--- NOTE | 2021-08-10 09:37 | PM.PNGS ---
Progress Note: A&P Assessment and Plan (1) Bacteremia: Code(s): R78.81 - Bacteremia Status: Acute Assessment and Plan: Minimal amount of serosanguineous drainage today. Okay to discharge from our standpoint on oral antibiotics. Continue gauze dressing changes daily. Follow-up with Dr. Tobar in the office in 1 week for suture removal. (2) Port-A-Cath in place: Code(s): Z95.828 - Presence of other vascular implants and grafts Status: Acute Subjective Subjective Date/Time Seen: 08/10/21 09:37 Post Op day: 5 (removal port-a-cath) Patient reports: no new complaints and afebrile Interval history: Patient seen and examined today. He has no specific complaints. He reports he is ready to go home. Yesterday, he was found to have some drainage from his incision and had quarter-inch iodoform packing placed. Nursing called me this morning to come re-evaluate his incision before discharge. Review of Systems Review of Systems: All systems reviewed & are unremarkable except as noted in HPI and below Exam Const: General: comfortable and no acute distress Orientation/consciousness: patient oriented x3 Chest: Other: Right chest dressing and packing removed. Scant amount serosanguineous drainage from center of the incision. No erythema, warmth, or swelling. Repacked with quarter-inch iodoform and covered with a gauze dressing. Psych: Insight: Good insight present (Psych) Judgement: Good judgement present (Psych) Objective Data Vital Signs Vital Signs: Vital Signs - 24 hr 08/09/21 12:00 08/09/21 14:35 08/09/21 14:42 Temperature 97.4 F L Pulse Rate 82 84 89 Respiratory Rate 16 20 18 Blood Pressure 156/90 H Pulse Oximetry 98 08/09/21 16:00 08/09/21 19:53 08/09/21 21:07 Temperature 97.0 F L 97.2 F L Pulse Rate 86 93 95 Respiratory Rate 16 16 Blood Pressure 152/77 H 137/87 Pulse Oximetry 96 99 08/09/21 23:08 08/10/21 03:12 08/10/21 08:00 Temperature 96.8 F L 97.4 F L 96.7 F L Pulse Rate 89 82 78 Respiratory Rate 16 16 18 Blood Pressure 119/67 127/62 136/71 Pulse Oximetry 98 97 99 08/10/21 08:35 08/10/21 08:40 08/10/21 08:42 Temperature Pulse Rate 88 89 Respiratory Rate 18 18 Blood Pressure Pulse Oximetry 96 08/10/21 09:19 Temperature Pulse Rate 89 Respiratory Rate Blood Pressure Pulse Oximetry Intake/Output Intake/Output: Intake & Output 08/07/21 08/08/21 08/09/21 08/10/21 23:59 23:59 23:59 23:59 Intake Total 2820 3450 1890 Balance 2820 3450 1890 Meds/Results Medications: Active Medications Generic Name Dose Route Start Last Admin Trade Name Freq PRN Reason Stop Dose Admin Acetaminophen 650 mg 08/03/21 15:22 08/03/21 15:58 Acetaminophen 325 Mg Tablet PO 650 mg Q4H PRN Administration Mild Pain (1-3) or Fever Hydrocodone Bitart/Acetaminophen 1 tab 08/05/21 12:09 08/10/21 09:17 Hydrocodone/Acetaminophen (*Crx) 7.5-325 Mg Tablet PO 1 tab Q4H PRN Administration Pain Rated 7-10 Albuterol 2 puff 08/04/21 00:04 Albuterol Sulfate (*Sp) Aerosol 1 Puff INHALATION Q6HRT PRN Shortness Of Breath Albuterol 2.5 mg 08/09/21 20:00 08/10/21 08:40 Albuterol Sulfate Neb 2.5 Mg/0.5 Ml Inh INHALATION 2.5 mg TIDRT SANDRA Administration Alprazolam 0.5 mg 08/04/21 00:05 08/09/21 16:12 Alprazolam (*Crx) 0.5 Mg Tablet PO 0.5 mg TID PRN Administration anxiety Aspirin 81 mg 08/04/21 09:00 08/10/21 09:19 Aspirin 81 Mg Enteric Tablet PO 81 mg DAILY SANDRA Administration Atorvastatin Calcium 40 mg 08/04/21 21:00 08/09/21 21:06 Atorvastatin 40 Mg Tablet PO 40 mg HS SANDRA Administration Benzocaine 1 lozenge 08/06/21 13:52 08/06/21 16:37 Benzocaine/Menthol (*Bkc) 18 Ea Lozenge PO 1 lozenge PRN PRN Administration Sore Throat Dexamethasone 6 mg 08/09/21 11:15 08/10/21 09:18 Dexamethasone 2 Mg Tablet PO 08/12/21 08:01 6 mg DAILY@0
[2021-08-10] MEDS: levoFLOXacin 750 MG TABLET PO (13:50)
== END 2021-08-10 14:08 | disposition home or self-care (01) | DRG 314 ==
LOC: ANHED 15:43 → ANH3MEDSUR 08-04 08:48
PROVIDERS: Internal Medicine Hematology & Oncology; Nurse Practitioner; Surgery; Admitting Provider Family Medicine; Emergency Provider Emergency Medicine; PCP Internal Medicine; Visit Provider Nurse Practitioner
PROC: 02PY33Z Removal of Infusion Device from Great Vessel, Percutaneous Approach (ICD-10-PCS; CPT 36589; principal; 2021-08-05 12:00)
DX: T80.211A Bloodstream infection due to central venous catheter, initial encounter (principal); U07.1 COVID-19; J12.82 Pneumonia due to coronavirus disease 2019; R78.81 Bacteremia; C82.90 Follicular lymphoma, unspecified, unspecified site; C34.11 Malignant neoplasm of upper lobe, right bronchus or lung; I10 Essential (primary) hypertension; E78.00 Pure hypercholesterolemia, unspecified; I25.10 Atherosclerotic heart disease of native coronary artery without angina pectoris; F32.9 Major depressive disorder, single episode, unspecified; F41.9 Anxiety disorder, unspecified; K59.00 Constipation, unspecified; E78.5 Hyperlipidemia, unspecified; J43.9 Emphysema, unspecified; R09.02 Hypoxemia; I48.91 Unspecified atrial fibrillation; K21.9 Gastro-esophageal reflux disease without esophagitis; I73.9 Peripheral vascular disease, unspecified; H35.039 Hypertensive retinopathy, unspecified eye; M19.042 Primary osteoarthritis, left hand; M19.041 Primary osteoarthritis, right hand; D70.9 Neutropenia, unspecified; Z95.1 Presence of aortocoronary bypass graft; I25.2 Old myocardial infarction; Z98.42 Cataract extraction status, left eye; Z98.41 Cataract extraction status, right eye; Z87.891 Personal history of nicotine dependence
CPT/HCPCS: 36415; 71045; 80053; 81003; 82565; 83605; 84460; 84484; 85025; 85027; 85055; 85610; 87040; 88300; 94640; 96361; 96374; 99285; A9270; C9803; J1100; J1650; J1956; J2405; J2704; J7030; J7120; J8540; U0003; U0005

== ENCOUNTER 2022-05-26 13:42 | Outpatient (CLI) | payer OTHER, MEDICAID, SELFPAY ==
[2022-05-26 14:16] LABS: Basophils Absolute Auto 0.1 K/mm3 (0.0-0.1); Basophils Percent Auto 0.7 % (0.2-1.2); Eosinophils Absolute Auto 0.1 K/mm3 (0-0.3); Eosinophils Percent Auto 0.9 % (0-4.4); Hematocrit 23.1 % (42.0-52.0); Hemoglobin 7.4 g/dL (14.0-18.0); Immature Granulocyte Absolute 0.37 K/mm3 (0.00-0.031); Immature Granulocyte Percent A 3.6 % (0-0.5); Lymphocytes Absolute Auto 0.56 K/mm3 (0.9-3.2); Lymphocytes Percent Auto 5.5 % (18.3-44.2); Mean Corpuscular Hemoglobin 37.2 pg (26-34); Mean Corpuscular Volume 116.1 fl (80-100); Mean Platelet Volume 9.5 fl (7.4-10.4); Monocytes Absolute Auto 1.8 K/mm3 (0.1-0.6); Monocytes Percent Auto 17.6 % (2.6-8.5); Neutrophils Absolute Auto 7.3 K/mm3 (1.3-6.7); Neutrophils Percent Auto 71.7 % (45.5-73.1); Platelet Count Result 251 k/mm3 (150-375); Red Blood Count 1.99 M/mm3 (4.6-6.20); Red Cell Distribution Width 20.8 % (11.5-14.5); White Blood Count 10.2 K/mm3 (4.5-10.0)
[2022-05-26 14:21] LABS: Alanine Aminotransferase 22 U/L (6-50); Albumin Level 3.6 g/dL (3.5-5.1); Alkaline Phosphatase 77 U/L (38-126); Anion Gap 4 mmol/L (8-16); Aspartate Amino Transferase 27 U/L (17-59); Bilirubin,Total 0.3 mg/dL (0.2-1.3); Blood Urea Nitrogen 13 mg/dL (9-20); Calcium 8.3 mg/dL (8.4-10.2); Carbon Dioxide 25 mmol/L (22-30); Chloride 99 mmol/L (98-107); Estimated Glomerular Filt Rate > 60; Glucose 96 mg/dL (65-110); Potassium 4.1 mmol/L (3.4-5.0); Sodium 128 mmol/L (137-145)
[2022-05-26 14:54] LABS: Hypochromasia 1+ (NORMAL); Platelet Estimate Adequate (Adequate); Schistocytes None Seen (NORMAL)
[2022-05-26 14:55] LABS: Anisocytosis 3+ (NORMAL); Macrocytosis 1+ (NORMAL)
== END 2022-05-26 13:43 | disposition home or self-care (01) ==
LOC: ANHLAB 13:44
PROVIDERS: PCP Internal Medicine; Visit Provider Internal Medicine
DX: I10 Essential (primary) hypertension (principal); I25.10 Atherosclerotic heart disease of native coronary artery without angina pectoris; D64.9 Anemia, unspecified
CPT/HCPCS: 36415; 36592; 80053; 85025

== ENCOUNTER 2022-06-01 09:36 | Outpatient (CLI) | payer OTHER, MEDICAID, SELFPAY ==
[2022-06-01 10:23] LABS: Basophils Percent Auto 0.5 % (0.2-1.2); Eosinophils Absolute Auto 0.3 K/mm3 (0-0.3); Hematocrit 22.6 % (42.0-52.0); Hemoglobin 7.4 g/dL (14.0-18.0); Immature Granulocyte Absolute 0.12 K/mm3 (0.00-0.031); Immature Granulocyte Percent A 1.4 % (0-0.5); Lymphocytes Absolute Auto 0.67 K/mm3 (0.9-3.2); Lymphocytes Percent Auto 7.6 % (18.3-44.2); Mean Corpuscular HGB Conc 32.7 g/dl (32-36); Mean Corpuscular Hemoglobin 36.8 pg (26-34); Mean Corpuscular Volume 112.4 fl (80-100); Mean Platelet Volume 9.1 fl (7.4-10.4); Monocytes Absolute Auto 1.4 K/mm3 (0.1-0.6); Monocytes Percent Auto 15.3 % (2.6-8.5); Neutrophils Absolute Auto 6.4 K/mm3 (1.3-6.7); Neutrophils Percent Auto 72.2 % (45.5-73.1); Platelet Count Result 244 k/mm3 (150-375); Red Blood Count 2.01 M/mm3 (4.6-6.20); Red Cell Distribution Width 17.1 % (11.5-14.5); White Blood Count 8.8 K/mm3 (4.5-10.0)
[2022-06-01 10:31] LABS: Alanine Aminotransferase 21 U/L (6-50); Albumin Level 3.7 g/dL (3.5-5.1); Alkaline Phosphatase 87 U/L (38-126); Anion Gap 8 mmol/L (8-16); Aspartate Amino Transferase 19 U/L (17-59); Bilirubin,Total 0.4 mg/dL (0.2-1.3); Blood Urea Nitrogen 12 mg/dL (9-20); Calcium 8.5 mg/dL (8.4-10.2); Carbon Dioxide 24 mmol/L (22-30); Chloride 97 mmol/L (98-107); Cholesterol 112 mg/dL (0-200); Estimated Glomerular Filt Rate > 60; Glucose 98 mg/dL (65-110); HDL Direct 35 mg/dL; Potassium 4.1 mmol/L (3.4-5.0); Sodium 129 mmol/L (137-145); Triglycerides 109 mg/dL (<150)
[2022-06-01 10:42] LABS: LDL Cholesterol Direct 53 mg/dL
[2022-06-01 10:53] LABS: Anisocytosis 1+ (NORMAL); Hypochromasia 1+ (NORMAL); Platelet Estimate Adequate (Adequate); Schistocytes None Seen (NORMAL)
== END 2022-06-01 09:37 | disposition home or self-care (01) ==
PROVIDERS: PCP Internal Medicine; Referring Provider Internal Medicine Cardiovascular Disease; Visit Provider Internal Medicine
DX: D53.9 Nutritional anemia, unspecified (principal); I25.10 Atherosclerotic heart disease of native coronary artery without angina pectoris; E78.5 Hyperlipidemia, unspecified; E87.1 Hypo-osmolality and hyponatremia
CPT/HCPCS: 36415; 36592; 80048; 80061; 80076; 82607; 85025

== ENCOUNTER 2022-06-10 07:49 | Outpatient (RCR) | payer OTHER, MEDICAID, SELFPAY ==
[2022-06-10] VITALS (11 sets, daily range): BP systolic 113–139; BP diastolic 59–85; PULSE 78–99; RESP 16–22; TEMP 36.4–36.9; O2SAT 96–100
[2022-06-10 08:56] LABS: Hematocrit 21.1 % (42.0-52.0)
[2022-06-10 09:02] LABS: Hemoglobin 6.7 g/dL (14.0-18.0)
[2022-06-10] MEDS: SODIUM CHLORIDE 0.9% IV 250 ML 30 ML IV CONT (10:30)
[2022-06-10] MEDS: HEPARIN SODIUM LOCK FLUSH 500 UNITS/5 ML VIAL (16:38)
== END 2022-09-08 23:59 | disposition home or self-care (01) ==
LOC: ANHCPCTRAN 07:49
PROVIDERS: PCP Internal Medicine; Visit Provider Internal Medicine
DX: D64.9 Anemia, unspecified (principal)
CPT/HCPCS: 36415; 36430; 85014; 85018; 86850; 86900; 86901; 86923; J1642; J7050; P9016

== ENCOUNTER 2022-06-18 11:02 | Outpatient (CLI) | payer OTHER, MEDICAID, SELFPAY ==
[2022-06-18 11:54] LABS: Hematocrit 28.3 % (42.0-52.0)
== END 2022-06-18 11:03 | disposition home or self-care (01) ==
PROVIDERS: PCP Internal Medicine; Visit Provider Internal Medicine
DX: D64.9 Anemia, unspecified (principal)
CPT/HCPCS: 36415; 36592; 85014; 85018

== ENCOUNTER 2022-06-29 09:15 | Outpatient (CLI) | payer OTHER, MEDICAID, SELFPAY ==
[2022-06-29 09:56] LABS: Basophils Percent Auto 0.5 % (0.2-1.2); Eosinophils Absolute Auto 0.2 K/mm3 (0-0.3); Eosinophils Percent Auto 2.6 % (0-4.4); Hematocrit 28.9 % (42.0-52.0); Hemoglobin 9.1 g/dL (14.0-18.0); Immature Granulocyte Percent A 1.3 % (0-0.5); Lymphocytes Absolute Auto 0.63 K/mm3 (0.9-3.2); Lymphocytes Percent Auto 7.9 % (18.3-44.2); Mean Corpuscular HGB Conc 31.5 g/dl (32-36); Mean Corpuscular Volume 98.3 fl (80-100); Mean Platelet Volume 9.3 fl (7.4-10.4); Monocytes Absolute Auto 1.5 K/mm3 (0.1-0.6); Monocytes Percent Auto 19.3 % (2.6-8.5); Neutrophils Absolute Auto 5.4 K/mm3 (1.3-6.7); Neutrophils Percent Auto 68.4 % (45.5-73.1); Platelet Count Result 261 k/mm3 (150-375); Red Blood Count 2.94 M/mm3 (4.6-6.20); Red Cell Distribution Width 17.2 % (11.5-14.5)
== END 2022-06-29 09:16 | disposition home or self-care (01) ==
PROVIDERS: PCP Internal Medicine; Visit Provider Internal Medicine
DX: D53.9 Nutritional anemia, unspecified (principal)
CPT/HCPCS: 36415; 36592; 85025

== ENCOUNTER 2022-07-12 07:46 | Outpatient (CLI) | payer OTHER, MEDICAID, SELFPAY ==
[2022-07-12 08:20] VITALS: PULSE 86; O2SAT 97
[2022-07-12 08:22] VITALS: PULSE 99; O2SAT 94
[2022-07-12 08:30] VITALS: PULSE 80; O2SAT 98
--- NOTE | 2022-07-12 08:43 | HOMEO2EVAL ---
Evaluation was performed at [facility] Home Oxygen Evaluation RC: Home Oxygen (O2) Evaluation Start: 07/12/22 08:41 Freq: Status: Active Protocol: RPE Activity Type Activity Date Activity User E-sign Co-sign Detail Recorded Client Recorded Date Recorded By Document 07/12/22 08:20 BALJINDER [email or web address] 07/12/22 08:43 BALJINDER Document 07/12/22 08:22 BALJINDER [email or web address] 07/12/22 08:43 BALJINDER Document 07/12/22 08:30 BALJINDER [email or web address] 07/12/22 08:43 BALJINDER 07/12/22 07/12/22 07/12/22 08:20 08:22 08:30 Home O2 Evaluation [Oxygen] -Test Phase Resting Exercise Resting -Oxygen Delivery Room Air Room Air Room Air [Pulse Oximetry] -Pulse Oximetry (90-100 %) 97 94 98 [Pulse Rate] -Pulse Rate (60-100 beats/min) 86 99 80 [Evaluation] -Activity Tolerance Fair -Rating of Perceived Dyspnea (PD) +2 Mild, Some Difficulty, Noticeable to the Observer [Exercise] -Ambulation Distance (feet) 250 -Ambulation Distance (meters) 76.19 [Charges] -Treatment Charges O2 Evaluation - Outpatient
--- NOTE | 2022-07-12 08:45 | PCRCNOTE ---
HOME O2 EVAL FAXED TO OFFICE. PT DID NOT QUALIFY FOR HOME O2.
== END 2022-07-12 07:47 | disposition home or self-care (01) ==
LOC: ANHPFT 07:47
PROVIDERS: PCP Internal Medicine; Visit Provider Nurse Practitioner Family
DX: R06.09 Other forms of dyspnea (principal)
CPT/HCPCS: 94618

== ENCOUNTER 2022-09-30 09:31 | Outpatient (CLI) | payer OTHER, MEDICAID, SELFPAY ==
--- NOTE | ~2022-09-30 | CT_ITS ---
Clinical Indication: Pulmonary emphysema CT Scan of the Chest with Contrast: Technique: Contiguous sections were acquired throughout the chest after intravenous administration of 100 cc of Omnipaque 350. Dose reduction technique was used on this scan by utilizing automated expos ure control and iterative reconstruction technique. The dose-length product (DLP) was 422.00 mGy-cm. COMPARISON: 06/11/2021 Findings: There is no evidence of any significant mediastinal, hilar or axillary lymphadenopathy. There is no f illing defect in the pulmonary arterial tree to suggest pulmonary embolus. There is no evidence of ao rtic dissection or aneurysm. There are atherosclerotic calcifications of the aorta. Coronary artery c alcifications are present. Severe emphysema present. There is a new irregular subtle curvilinear density in the posterior right upper lobe (axial image 40 for example). Additional right apical scarring is otherwise unchanged. The re is an irregular nodular opacity in the peripheral left lower lobe (axial images 90-95, possibly im pacted small airway. There is a somewhat ill-defined possible semisolid lesion or partially groundgla ss opacity in the left upper lobe measuring 2.7 cm in diameter (axial image 66). The lungs are clear. No pulmonary nodules or infiltrates are noted. Images through the upper abdomen reveal no abnormalities. Impression: No evidence of pulmonary embolus, aortic dissection, or aortic aneurysm. New irregular, somewhat curvilinear density posterior right upper lobe. This is indeterminate. An oss ific incision include scarring, inflammatory/post inflammatory change or possibly neoplasm, although the morphology somewhat atypical for neoplastic disease. Consider follow-up exam in 3 months. Additional somewhat branching nodular opacity in the left lower lobe, possibly impacted small airway. Again, 3-month-old exam is advised. 2.7 cm possible semisolid lesion, as noted above in the left upper lobe. Bronchoalveolar cell carcino ma or inflammatory process could have such an appearance. Follow-up CT scan in 3 months again advised . Underlying severe emphysema. Reviewed, dictated and finalized at location . Impression: No evidence of pulmonary embolus, aortic dissection, or aortic aneurysm. New irregular, somewhat curvilinear density posterior right upper lobe. This is indeterminate. An ossific incision include scarring, inflammatory/post inflamm atory change or possibly neoplasm, although the morphology somewhat atypical fo r neoplastic disease. Consider follow-up exam in 3 months. Additional somewhat branching nodular opacity in the left lower lobe, possibly impacted small airway. Again, 3-month-old exam is advised. 2.7 cm possible semisolid lesion, as noted above in the left upper lobe. Bronch oalveolar cell carcinoma or inflammatory process could have such an appearance. Follow-up CT scan in 3 months again advised. Underlying severe emphysema.
[2022-09-30 09:55] LABS: Estimated Glomerular Filt Rate > 60
== END 2022-09-30 09:32 | disposition home or self-care (01) ==
PROVIDERS: PCP Internal Medicine; Visit Provider Internal Medicine
DX: J43.9 Emphysema, unspecified (principal); R91.8 Other nonspecific abnormal finding of lung field
CPT/HCPCS: 71275; Q9967

== ENCOUNTER 2022-11-06 09:32 | Outpatient (CLI) | payer OTHER, MEDICAID, SELFPAY ==
--- NOTE | ~2022-11-06 | XR_ITS ---
EXAMINATION: XR barium swallow DATE: 11/06/2022 10:36 INDICATION: Dysphagia. TECHNIQUE: The patient drank thick barium and thin barium. Fluoroscopy of the hypopharynx and esophag us was performed. Fluoroscopy exposure time was 0.5 minutes. The total number of images was 26. The d ose-area product was 0.67 Gy-cm^2. COMPARISON: None. FINDINGS: There was gross aspiration of contrast without cough. The mid and distal esophagus is not w ell evaluated. IMPRESSION: 1. Gross aspiration of contrast without cough. 2. Mid and distal esophagus not well evaluated. Reviewed, dictated and finalized at location A.
== END 2022-11-06 09:33 | disposition home or self-care (01) ==
LOC: ANHIMG 09:36
PROVIDERS: PCP Internal Medicine; Visit Provider Internal Medicine
DX: R13.10 Dysphagia, unspecified (principal)
CPT/HCPCS: 74220